=== PATIENT | male | born 1970 | race Caucasian/White ===

== ENCOUNTER 2016-06-20 01:31 | Emergency (ER) | payer BC, OTHER ==
[2016-06-20 01:40] VITALS: BP 183/103; PULSE 62; TEMP 98.9; BMI 40.6
--- NOTE | 2016-06-20 01:48 | PDOC ---
History of Present Illness - General Chief Complaint: Pain, Acute Stated Complaint: BACK PAIN Time Seen by Provider: 06/20/16 01:41 History Source: Patient Exam Limitations: No Limitations - History of Present Illness Initial Comments: 06/20/16 01:46 This is a 45-year-old male who comes in complaining of his mid back. Patient has a long history of lower back pain for which he takes oxycodone and OxyContin. Patient said that he has had this pain for approximately a month and is gotten a little bit worse over the last week or so. Patient denies any pain on urination any frequency of urination or any blood in his urine. Patient denies any radiation of the pain. Patient says he does sometimes have difficulty urinating but that has been going on for several years. Patient denies any fevers, nausea, vomiting or diarrhea. PAST MEDICAL HISTORY: no significant history PAST SURGICAL HISTORY: no significant history FAMILY HISTORY: no pertinant history SOCIAL HISTORY: Pt lives with family and is employed. MEDICATIONS: reviewed ALLERGIES: As per nursing notes Review of Systems General: No fevers or chills, no weakness, no weight loss HEENT: No change in vision. No sore throat,. No ear pain CardioVascular: No chest pain or shortness of breath Respiratory:No cough, or wheezing. Gastrointestinal: no nausea, vomitting, diarrhea or constipation, No rectal bleeding Genitourinary: No dysuria, hematuria, or frequency Musculoskeletal: No joint or muscle pain or swelling Neurologic: No headache, vertigo, dizziness or loss of consciousness Psychiatric: nor depression Skin: No rashes or easy bruising Endocrine: no increased thirst or abnormal weight change Allergic: no skin or latex allergy All other systems reviewed and normal GENERAL: The patient is awake, alert, and fully oriented, in no acute distress. HEAD: Normal with no signs of trauma. EYES: Pupils equal, round and reactive to light, extraocular movements intact, sclera anicteric, conjunctiva clear. EXTREMITIES: Normal range of motion, no edema. BACK: There is tenderness on palpation of the lower back however there is no tenderness on palpation of the mid back for patient is complaining of the pain. There is no palpable spasms. NEUROLOGICAL: Normal speech, normal gait. PSYCH: Normal mood, normal affect. SKIN: Warm, Dry, normal turgor, no rashes or lesions noted. Past History - Past Medical History Allergies/Adverse Reactions: Allergies Allergy/AdvReac Type Severity Reaction Status Date / Time aspirin Allergy Verified 06/20/16 01:36 Penicillins Allergy Verified 06/20/16 01:36 Home Medications: Ambulatory Orders Oxycodone HCl 10 mg PO Q4HWA PRN #30 tablet 07/09/14 Enalapril Maleate [Vasotec] 20 mg PO DAILY 08/02/15 Metoprolol Succinate [Toprol Xl -] 25 mg PO BID 08/02/15 Oxycodone HCl [Oxycontin] 30 mg PO TID 08/02/15 HTN: Yes Liver Disease: Yes Other medical history: CHRONIC BACK PAIN - Psycho/Social/Smoking Cessation Hx Anxiety: No Suicidal Ideation: No Smoking History: Current every day smoker Have you smoked in the past 12 months: Yes Number of Cigarettes Smoked Daily: 20 Information on smoking cessation initiated: Yes 'Breaking Loose' booklet given: 06/09/15 Hx Alcohol Use: No Drug/Substance Use Hx: No Substance Use Type: Alcohol, Prescribed *Physical Exam - Vital Signs Last Vital Signs Temp Pulse Resp BP Pulse Ox 98.9 F 62 16 183/103 100 06/20/16 01:37 06/20/16 01:37 06/20/16 01:37 06/20/16 01:37 06/20/16 01:37 *DC/Admit/Observation/Transfer Diagnosis at time of Disposition: Back pain Qualifiers: Back pain location: thoracic back pain Chronicity: chronic Back pain laterality : left Qualified Code(s): M54.6 - Pain in thoracic spine; G89.29 - Other chronic pain - Discharge Dispostion Disposition: HOME Condition at time of disposition: Stable - Patient Instructions Additional Instructions: Continued to take your oxycodone and OxyContin as prescribed for pain. Return to the emergency department immediately with ANY new, persistent or worsening symptoms. Continue any medications as previously prescribed by your physician. You should follow up with your primary doctor as soon as possible regarding today's emergency department visit. . Please make sure your doctor reviews the results of your emergency evaluation. Thank you for coming to the Emergency Department today for your care. It was a pleasure to see you today. Please note that your evaluation is INCOMPLETE until you follow-up with your doctor.
[2016-06-20 02:44] LABS: URINE APPEARANCE CLEAR; URINE BILIRUBIN NEGATIVE (NEGATIVE); URINE BLOOD NEGATIVE (NEGATIVE); URINE COLOR LTYELLOW; URINE GLUCOSE (UA) NEGATIVE (NEGATIVE); URINE KETONE NEGATIVE (NEGATIVE); URINE LEUK ESTERASE NEGATIVE (NEGATIVE); URINE NITRITE NEGATIVE (NEGATIVE); URINE PROTEIN NEGATIVE (NEGATIVE); URINE UROBILINOGEN NEGATIVE E.U./dl (0.2-1.0)
== END 2016-06-20 02:49 | disposition home or self-care (01) ==
LOC: FER 01:31
DX: M54.6 Pain in thoracic spine (principal); G89.29 Other chronic pain; F17.210 Nicotine dependence, cigarettes, uncomplicated; I10 Essential (primary) hypertension; K76.9 Liver disease, unspecified
CPT/HCPCS: 81003; 99281-25

== ENCOUNTER 2017-09-17 17:31 | Emergency (ER) | payer BC, OTHER ==
[2017-09-17 17:37] VITALS: BMI 40.0
[2017-09-17 17:42] VITALS: TEMP 99.1
--- NOTE | 2017-09-17 17:58 | PDOC ---
History of Present Illness - General History Source: Patient Exam Limitations: No Limitations - History of Present Illness Initial Comments: 09/17/17 18:35 The patient is a 46 year old male with past medical history of hypertension, alcohol abuse, liver cirrhosis, and esophageal varices (2010) who presents to the ED with complaints of abdominal pain that began this morning. The patient reports a moderate, constant, non-radiating pain to his epigastrium associated with nausea. He denies any vomiting or diarrhea but reports having an episode of dark colored stool earlier this morning. He reports his symptoms are very similar to his esophageal varices except in the past he was vomiting up blood. He denies any recent illness, fevers, chills, cough, SOB, chest pain or urinary symptoms. Allergies: Aspirin, penicillins Social Hx: Former alcohol abuse, pack a day smoker GI: Dr. Marie <Dion Carl - Last Filed: 09/17/17 19:28> <Sanjiv Phillips - Last Filed: 09/20/17 14:22> - General Chief Complaint: Pain, Acute Stated Complaint: abd pain, nausea Time Seen by Provider: 09/17/17 17:58 Past History <Dion Carl - Last Filed: 09/17/17 19:28> - Past Medical History COPD: No HTN: Yes Liver Disease: Yes Other medical history: esop varicies, cirrohis - Suicide/Smoking/Psychosocial Hx Smoking History: Current every day smoker Have you smoked in the past 12 months: Yes Number of Cigarettes Smoked Daily: 20 Information on smoking cessation initiated: Yes 'Breaking Loose' booklet given: 09/17/17 Hx Alcohol Use: Yes Drug/Substance Use Hx: No Substance Use Type: Alcohol, Prescribed <Sanjiv Phillips - Last Filed: 09/20/17 14:22> - Past Medical History Allergies/Adverse Reactions: Allergies Allergy/AdvReac Type Severity Reaction Status Date / Time aspirin Allergy Verified 09/17/17 17:32 Penicillins Allergy Verified 09/17/17 17:32 Home Medications: Ambulatory Orders Enalapril Maleate [Vasotec] 20 mg PO BID 08/02/15 Metoprolol Succinate [Toprol Xl -] 25 mg PO BID 08/02/15 Oxycodone HCl [Oxycontin] 20 mg PO TID 08/02/15 Amlodipine Besylate [Norvasc -] 0 mg PO DAILY 09/17/17 Escitalopram Oxalate [Lexapro -] 20 mg PO DAILY 09/17/17 Pantoprazole Sodium [Protonix -] 40 mg PO DAILY #14 tablet.ec 09/17/17 Review of Systems - Review of Systems Able to Perform ROS?: Yes Comments:: 09/17/17 18:35 A complete review of 10 out of 10 review of systems is taken and is negative apart from what is previously mentioned below and in the HPI. All Other Systems: Reviewed and Negative <Dion Carl - Last Filed: 09/17/17 19:28> *Physical Exam - Vital Signs Last Vital Signs Temp Pulse Resp BP Pulse Ox 99.1 F 65 17 156/99 97 09/17/17 17:31 09/17/17 17:31 09/17/17 17:31 09/17/17 17:31 09/17/17 17:31 - Physical Exam Comments: 09/17/17 18:35 Vitals: Triage Vital signs reviewed General Appearance: no acute distress, well nourished well developed, Head: Atraumatic, normocephalic Cardiac: Regular rate and rhythm, no murmurs, no rubs, no gallops, Lungs: Clear to auscultation bilateral, good air movement bilaterally, Abdomen: +mild epigastric tenderness. Soft, nondistended, normal bowel sounds Rectal: +Brown stool Extremities: Full range of motion to all extremities, no cyanosis, clubbing, or edema Skin: Warm and dry, no rashes or lesions, no petechiae Neuro: AOX3; Cranial Nerves 2-12 grossly intact, Strength intact to all extremities, Sensation intact to all extremities Psych: normal mood, normal affect <Dion Carl - Last Filed: 09/17/17 19:28> - Vital Signs Last Vital Signs Temp Pulse Resp BP Pulse Ox 99.1 F 65 17 156/99 97 09/17/17 17:31 09/17/17 17:31 09/17/17 17:31 09/17/17 17:31 09/17/17 17:31 <Sanjiv Phillips - Last Filed: 09/20/17 14:22> Heart Score/ECG Review - ECG Impressions Comment:: 09/17/17 18:53 EKG performed at 1837. Demonstrates sinus bradycardia 56 bpm. Normal intervals. No ST elevations. T wave inversion in lead 3. Interpreted by me. <Sanjiv Phillips - Last Filed: 09/20/17 14:22> ED Treatment Course - LABORATORY CBC & Chemistry Diagram: 09/17/17 18:20 09/17/17 18:20 - ADDITIONAL ORDERS Additional order review: Laboratory Results 09/17/17 18:25 Stool Occult Blood Trace 09/17/17 18:20 RBC 4.44 MCV 95.7 MCHC 33.4 RDW 13.9 MPV 9.2 Neutrophils % 70.2 Lymphocytes % 19.6 D Monocytes % 7.8 Eosinophils % 1.0 Basophils % 1.4 - Medications Given in the ED: ED Medications Discontinued Medications Generic Name Dose Route Start Last Admin Trade Name Freq PRN Reason Stop Dose Admin Ondansetron HCl 4 mg 09/17/17 18:10 09/17/17 18:31 Zofran Injection IVPUSH 09/17/17 18:11 4 mg ONCE ONE Administration <Dion Carl - Last Filed: 09/17/17 19:28> - LABORATORY CBC & Chemistry Diagram: 09/17/17 18:20 09/17/17 18:20 <Sanjiv Phillips - Last Filed: 09/20/17 14:22> Medical Decision Making - Medical Decision Making 09/17/17 19:15 Microblog sent to [facility]. Awaiting call back 09/17/17 19:28 Phone call returned by hospitalist and case discussed. <Dion Carl - Last Filed: 09/17/17 19:28> - Medical Decision Making 09/17/17 18:52 The patient is a 46 year old male with past medical history of hypertension, alcohol abuse, liver cirrhosis, and esophageal varices (2010) who presents to the ED with complaints of abdominal pain that began this morning. The patient reports a moderate, constant, non-radiating pain to his epigastrium associated with nausea. He denies any vomiting or diarrhea but reports having an episode of dark colored stool earlier this morning. He reports his symptoms are very similar to his esophageal varices except in the past he was vomiting up blood. He denies any recent illness, fevers, chills, cough, SOB, chest pain or urinary symptoms. 46 years old with history of alcoholic cirrhosis and variceal bleed in the past presents to the ED with one-day history of nausea and epigastric discomfort and one episode of black stool today No dizziness no lightheadedness Given history we'll check labs EKG type and screen coags. Rectal exam demonstrated brown stool guaiac sent to lab Dr. Harden to follow up labs reassess patient and Dispo likely admission. 09/17/17 18:52 <Sanjiv Phillips - Last Filed: 09/20/17 14:22> *DC/Admit/Observation/Transfer - Attestations Scribe Attestion: 09/17/17 18:36 Documentation prepared by Dion Carl, acting as medical secretary receptionist for Sanjiv Phillips MD. <Dion Carl - Last Filed: 09/17/17 19:28> <Sanjiv Phillips - Last Filed: 09/20/17 14:22> Diagnosis at time of Disposition: Epigastric abdominal pain, History of esophageal varices - Discharge Dispostion Disposition: AGAINST MEDICAL ADVICE Condition at time of disposition: Fair - Prescriptions Prescriptions: Pantoprazole Sodium [Protonix -] 40 mg PO DAILY #14 tablet.ec - Referrals Referrals: Joshua Reed [Non Staff, Medical] - Call tomorrow - Patient Instructions Additional Instructions: Call your care aid, Dr. Marie, tomorrow morning and follow-up within the next 48 hours Protonix 40 mg daily Frequent small meals; avoid alcohol Go to emergency room if you have any worsening abdominal pain/blood in stool or black stools/vomiting
[2017-09-17] MEDS ORDERED: FAMOTIDINE 20 MG/50 ML IVPB 20 MG/50 ML MG IVPB ONE ×2 (18:10→18:26)
[2017-09-17] MEDS ORDERED: ONDANSETRON 4 MG/2 ML VIAL IVPUSH ONE (18:10)
[2017-09-17] MEDS ORDERED: ONDANSETRON 4 MG/2 ML VIAL ONE (18:26)
[2017-09-17 18:32] LABS: BASO % 1.4 % (0-2.0); HEMATOCRIT 42.5 % (35.4-49); HEMOGLOBIN 14.2 GM/dl (11.7-16.9); LYMPH % 19.6 % (8-40); MCHC 33.4 g/dl (32.0-35.9); MEAN CELL VOLUME 95.7 fl (80-96); MEAN PLT VOLUME 9.2 fl (7.5-11.1); MONO % 7.8 % (3.8-10.2); NEUT % 70.2 % (42.8-82.8); PLATELET COUNT 140 K/MM3 (134-434); RBC 4.44 M/mm3 (4.00-5.60); RDW 13.9 % (11.9-15.9); WHITE BLOOD COUNT 4.7 K/mm3 (4.0-10.8)
[2017-09-17 18:49] LABS: ACTIVATED PTT 30.1 SECONDS (25.2-36.5)
[2017-09-17 18:51] LABS: ALBUMIN 3.4 g/dl (3.5-5.0); ALK PHOS 63 U/L (32-92); ANION GAP 6 (8-16); BILIRUBIN,TOTAL 0.9 mg/dl (0.2-1.0); BLOOD UREA NITROGEN 11 mg/dl (7-18); CALCIUM 8.7 mg/dl (8.4-10.2); CHLORIDE 103 mmol/L (98-107); CO2 27 mmol/L (22-28); CREATININE 0.8 mg/dl (0.6-1.3); GLUCOSE,RANDOM 108 mg/dl (74-106); POTASSIUM 3.8 mmol/L (3.5-5.1); SGOT/AST 58 U/L (10-42); SGPT/ALT 40 U/L (10-40); SODIUM 136 mmol/L (136-145); TOT PROT 7.1 g/dl (6.4-8.3)
[2017-09-17 18:54] LABS: INR 1.33 (0.82-1.09); PROTHROMBIN TIME (PATIENT) 14.8 SEC (10.2-13.0)
[2017-09-17 19:35] LABS: LIPASE 197 U/L (73-393)
--- NOTE | 2017-09-17 19:35 | PDOC ---
*Physical Exam - Vital Signs Last Vital Signs Temp Pulse Resp BP Pulse Ox 99.1 F 65 17 156/99 97 09/17/17 17:31 09/17/17 17:31 09/17/17 17:31 09/17/17 17:31 09/17/17 17:31 ED Treatment Course - LABORATORY CBC & Chemistry Diagram: 09/17/17 18:20 09/17/17 18:20 - ADDITIONAL ORDERS Additional order review: Laboratory Results 09/17/17 09/17/17 09/17/17 18:25 18:20 18:20 PT with INR 14.8 H INR 1.33 H PTT (Actin FS) 30.1 Sodium 136 Potassium 3.8 Chloride 103 Carbon Dioxide 27 Anion Gap 6 L BUN 11 Creatinine 0.8 Creat Clearance w eGFR > 60 Random Glucose 108 H Calcium 8.7 Total Bilirubin 0.9 AST 58 H D ALT 40 Alkaline Phosphatase 63 Total Protein 7.1 Albumin 3.4 L Stool Occult Blood Trace 09/17/17 18:20 RBC 4.44 MCV 95.7 MCHC 33.4 RDW 13.9 MPV 9.2 Neutrophils % 70.2 Lymphocytes % 19.6 D Monocytes % 7.8 Eosinophils % 1.0 Basophils % 1.4 - Medications Given in the ED: ED Medications Discontinued Medications Generic Name Dose Route Start Last Admin Trade Name Autumn PRN Reason Stop Dose Admin Famotidine/Sodium Chloride 20 mg in 50 mls @ 100 mls/hr 09/17/17 18:10 18:31 Pepcid 20 Mg Premixed Ivpb - IVPB 09/17/17 18:39 100 mls/hr ONCE ONE Administration Ondansetron HCl 4 mg 09/17/17 18:10 09/17/17 18:31 Zofran Injection IVPUSH 09/17/17 18:11 4 mg ONCE ONE Administration Progress Note - Progress Note Progress Note: Care of this patient received from . Although the patient had consented to admission initially, when Dr. Phillips discussed this with him, as plans continued for his admission, patient decided to sign out AMA. The patient states that he absolutely needed to go to work at 5 AM tomorrow; no amount of work documentation or communication with his superiors would benefit the situation. He states that he understands the risks involved that I described, including severe gastrointestinal hemorrhage, possible shock and . Especially because he has a known history of esophageal varices, gastrointestinal hemorrhage could be very sudden and catastrophic. The patient states that he already has a press assistant, Dr. Noé Reed at [facility]. He states he will follow-up with him in the very near future. Patient asked for prescription strength "acid luis e" for his GERD/epigastric discomfort. Protonix 40 mg daily prescribed. *DC/Admit/Observation/Transfer Diagnosis at time of Disposition: Epigastric abdominal pain, History of esophageal varices - Discharge Dispostion Disposition: AGAINST MEDICAL ADVICE Condition at time of disposition: Fair - Prescriptions Prescriptions: Pantoprazole Sodium [Protonix -] 40 mg PO DAILY #14 tablet.ec - Referrals Referrals: Joshua Reed [Non Staff, Medical] - Call tomorrow - Patient Instructions Additional Instructions: Call your press assistant, Dr. Marie, tomorrow morning and follow-up within the next 48 hours Protonix 40 mg daily Frequent small meals; avoid alcohol Go to emergency room if you have any worsening abdominal pain/blood in stool or black stools/vomiting - Post Discharge Activity
[2017-09-17 21:00] VITALS: BP 166/102; PULSE 58
--- NOTE | 2017-09-19 13:08 | EKG ---
Test Reason : Blood Pressure : / mmHG Vent. Rate : 056 BPM Atrial Rate : 056 BPM P-R Int : 156 ms QRS Dur : 104 ms QT Int : 468 ms P-R-T Axes : 022 012 003 degrees QTc Int : 451 ms SINUS BRADYCARDIA OTHERWISE NORMAL ECG NO PREVIOUS ECGS AVAILABLE Confirmed by YANA EGAN MD ([id number]) on 09/19/2017 1:07:58 PM Referred By: KARL Confirmed By:YANA EGAN MD
== END 2017-09-17 21:05 | disposition left against medical advice (07) ==
LOC: FER 17:31
PROC: 3E033GC Introduction of Other Therapeutic Substance into Peripheral Vein, Percutaneous Approach (ICD-10-PCS; principal; 2017-09-17)
DX: R10.13 Epigastric pain (principal); I85.00 Esophageal varices without bleeding; I10 Essential (primary) hypertension; K70.30 Alcoholic cirrhosis of liver without ascites; F10.10 Alcohol abuse, uncomplicated; F17.210 Nicotine dependence, cigarettes, uncomplicated
CPT/HCPCS: 36415; 80053; 82272; 83690; 85025; 85610; 85730; 86850; 86900; 86901; 93005; 99282-25

== ENCOUNTER 2017-11-26 23:32 | Emergency (ER) | payer BC, OTHER ==
[2017-11-26 23:49] VITALS: BP 143/90; PULSE 74; BMI 40.6
--- NOTE | 2017-11-27 01:24 | PDOC ---
History of Present Illness - General Chief Complaint: RX Refill Stated Complaint: REQUESTS PAIN MEDICATION Time Seen by Provider: 11/26/17 23:43 - History of Present Illness Initial Comments: This 47-year-old man with a history of chronic lower back pain, history of alcohol abuse with subsequent cirrhosis/esophageal varices, hypertension, presents with persistent lower back pain and symptoms consistent with narcotic trauma since his PMD is decreasing amount of oxycodone he has been taking. The patient states that he has been taking an 120 mg of oxycodone daily for several years. His general medical doctor who prescribes his medications has recently decreased this dosage to 60 mg daily. Because of persistent pain on this dosage , the patient took more than what was prescribed on a daily basis and now has run out of his medication. He is scheduled to see his doctor in the next 24 hours but has been having intermittent muscle twitching, nausea, sweating. Past History - Past Medical History Allergies/Adverse Reactions: Allergies Allergy/AdvReac Type Severity Reaction Status Date / Time aspirin Allergy Verified 11/26/17 23:40 Penicillins Allergy Verified 11/26/17 23:40 Home Medications: Ambulatory Orders Enalapril Maleate [Vasotec] 20 mg PO BID 08/02/15 Metoprolol Succinate [Toprol Xl -] 25 mg PO BID 08/02/15 Oxycodone HCl [Oxycontin] 20 mg PO TID 08/02/15 Amlodipine Besylate [Norvasc -] 0 mg PO DAILY 09/17/17 Escitalopram Oxalate [Lexapro -] 20 mg PO DAILY 09/17/17 Pantoprazole Sodium [Protonix -] 40 mg PO DAILY #14 tablet.ec 09/17/17 COPD: No HTN: Yes Liver Disease: Yes - Suicide/Smoking/Psychosocial Hx Smoking History: Current every day smoker Have you smoked in the past 12 months: Yes Number of Cigarettes Smoked Daily: 20 Information on smoking cessation initiated: Yes 'Breaking Loose' booklet given: 09/17/17 Hx Alcohol Use: No Drug/Substance Use Hx: No Substance Use Type: Alcohol, Prescribed Review of Systems - Review of Systems Able to Perform ROS?: Yes Comments:: 12 point review of systems is negative except for what is noted in the history of present illness *Physical Exam - Vital Signs Last Vital Signs Temp Pulse Resp BP Pulse Ox 74 16 143/90 100 11/26/17 23:46 11/26/17 23:46 11/26/17 23:46 11/26/17 23:46 - Physical Exam Comments: GENERAL: Adult male, alert and oriented 3, appearing to be in mild distress, with intermittent lower extremity twitching HEAD: Normal with no signs of trauma. EYES: PERRLA, EOMI, sclera anicteric, conjunctiva clear. ENT: Ears normal, nares patent, oropharynx clear without exudates. Dry mucous membranes. NECK: Normal range of motion, supple without lymphadenopathy, JVD, or masses. LUNGS: Breath sounds equal, clear to auscultation bilaterally. No wheezes, and no crackles. HEART:Regular rate and rhythm, normal S1 and S2 without murmur, rub or gallop. ABDOMEN:.normal bowel sounds No guarding,tenderness or rebound.No masses No distention. EXTREMITIES: Normal range of motion, no edema. No clubbing or cyanosis. No erythema, or tenderness. NEUROLOGICAL: Cranial nerves II through XII grossly intact. Normal speech. No focal neurological deficits. MUSCULOSKELETAL: Back non-tender to palpation, no CVA tenderness SKIN: Warm, Dry, normal turgor, no rashes or lesions noted. Medical Decision Making - Medical Decision Making This 47-year-old man with a history of chronic lower back pain and daily large doses of oxycodone, recently had his daily dosage halved by his general medical doctor who prescribes his pain medication. Patient is now uncomfortable with signs of narcotic withdrawal as well as residual lower back pain. Of note, patient does not appear to have been under the care of a pain management physician for any length of time. He states that he would much rather his pain being managed with long-acting agents, etc. 4 tablets of Percocet 5/325 dispensed to patient until he can see his doctor tomorrow. Meanwhile, he was given referral information for , pain management *DC/Admit/Observation/Transfer Diagnosis at time of Disposition: Narcotic withdrawal Back pain Qualifiers: Back pain location: low back pain Chronicity: chronic Back pain laterality: midline Sciatica presence: without sciatica Qualified Code(s): M54.5 - Low back pain - Discharge Dispostion Disposition: HOME Condition at time of disposition: Stable - Referrals Referrals: Dayanna Mejia MD [Non Staff, Medical] - - Patient Instructions Printed Discharge Instructions: Managing Chronic Low Back Pain Additional Instructions: Follow-up later today with your general medical doctor as planned Consider following up with automobile painter (Dr. Mejia or other as discussed) - Post Discharge Activity
== END 2017-11-27 01:55 | disposition home or self-care (01) ==
LOC: FER 23:32
DX: F11.23 Opioid dependence with withdrawal (principal); M54.5 Low back pain; G89.29 Other chronic pain; F17.210 Nicotine dependence, cigarettes, uncomplicated; I10 Essential (primary) hypertension; K76.9 Liver disease, unspecified
CPT/HCPCS: 99281-25

== ENCOUNTER 2019-02-08 17:41 | Emergency (ER) | payer BC, OTHER ==
[2019-02-08 17:55] VITALS: BP 149/92; PULSE 71; TEMP 99; BMI 46.0
--- NOTE | 2019-02-08 18:11 | PDOC ---
History of Present Illness - General Chief Complaint: Edema Stated Complaint: BLE EDEMA Time Seen by Provider: 02/08/19 17:59 Past History - Past Medical History Allergies/Adverse Reactions: Allergies Allergy/AdvReac Type Severity Reaction Status Date / Time aspirin Allergy Verified 02/08/19 17:46 Penicillins Allergy Verified 02/08/19 17:46 Home Medications: Ambulatory Orders Enalapril Maleate [Vasotec] 20 mg PO BID 08/02/15 Metoprolol Succinate [Toprol Xl -] 25 mg PO BID 08/02/15 Amlodipine Besylate [Norvasc -] 5 mg PO DAILY 09/17/17 Buprenorphine HCl/Naloxone HCl [Buprenorp-Nalox 4-1 mg Sl Film] 1 film SL BID Hydrochlorothiazide [Hctz -] 1 tab PO DAILY 02/08/19 COPD: No HTN: Yes Liver Disease: Yes - Psycho Social/Smoking Cessation Hx Smoking History: Current every day smoker Have you smoked in the past 12 months: Yes Number of Cigarettes Smoked Daily: 20 Information on smoking cessation initiated: Yes 'Breaking Loose' booklet given: 09/17/17 Hx Alcohol Use: Yes (6 PACK BEER DAILY) Drug/Substance Use Hx: No Substance Use Type: Alcohol, Prescribed *Physical Exam - Vital Signs Last Vital Signs Temp Pulse Resp BP Pulse Ox 99 F 71 20 149/92 98 02/08/19 17:41 02/08/19 17:41 02/08/19 17:41 02/08/19 17:41 02/08/19 17:41
[2019-02-08 19:08] LABS: BASO % 0.8 % (0-2.0); EOS % 2.8 % (0-4.5); HEMATOCRIT 40.7 % (35.4-49); HEMOGLOBIN 13.8 GM/dl (11.7-16.9); MCHC 33.8 g/dl (32.0-35.9); MEAN CELL VOLUME 97.4 fl (80-96); MEAN PLT VOLUME 9.7 fl (7.5-11.1); MONO % 9.4 % (3.8-10.2); PLATELET COUNT 140 K/MM3 (134-434); RBC 4.18 M/mm3 (4.00-5.60); RDW 13.3 % (11.9-15.9); WHITE BLOOD COUNT 6.7 K/mm3 (4.0-10.8)
--- NOTE | 2019-02-08 19:10 | PDOC ---
*Physical Exam - Vital Signs Last Vital Signs Temp Pulse Resp BP Pulse Ox 99 F 71 20 149/92 98 02/08/19 17:41 02/08/19 17:41 02/08/19 17:41 02/08/19 17:41 02/08/19 17:41 ED Treatment Course - LABORATORY CBC & Chemistry Diagram: 02/08/19 18:45 02/08/19 18:45 - ADDITIONAL ORDERS Additional order review: Laboratory Results 02/08/19 18:45 Urine Color Yellow Urine Appearance Clear Urine pH 6.5 Urine Protein Negative Urine Glucose (UA) Negative Urine Ketones Negative Urine Blood Negative Urine Nitrite Negative Urine Bilirubin Negative Urine Urobilinogen 0.2 Ur Leukocyte Esterase Negative ED Progress Note - Progress Note Progress Note: 02/08/19 19:07 Care of this patient was transferred to sd from Dr. Madsion heller at 1900 hrs. Patient is a 48-year-old male who comes in complaining of bilateral lower extremity edema. Patient has a history of chronic alcohol use and cirrhosis of the liver. Patient is a history of esophageal varices that have bled in the past. Patient also has a history of hypertension, a work-up before coronary artery disease is in progress. However patient's edema most likely secondary to his chronic liver issues. 02/08/19 20:19 Patient's work-up was unremarkable including non-measurable troponin, EKG that showed possible old anterior infarct otherwise normal sinus rhythm no acute ST- T wave changes. His chest x-ray did show a mildly enlarged heart but otherwise no acute pathology. Patient denies any history of chest pain shortness of breath or cardiac symptoms. Patient's edema is most likely secondary to his chronic liver issues. Patient does have an appointment with a liver specialist in approximately 2 weeks We will start patient on Lasix once a day. Patient discharged home Discharge - Discharge Information Problems reviewed: Yes Clinical Impression/Diagnosis: Bilateral leg edema Disposition: HOME - Admission No - Follow up/Referral - Patient Discharge Instructions Additional Instructions: Return to the emergency department immediately with ANY new, persistent or worsening symptoms. Continue any medications as previously prescribed by your physician. You should follow up with your primary doctor as soon as possible regarding today's emergency department visit. . Please make sure your doctor reviews the results of your emergency evaluation. Thank you for coming to the Emergency Department today for your care. It was a pleasure to see you today. Please note that your evaluation is INCOMPLETE until you follow-up with your doctor. - Post Discharge Activity
[2019-02-08 19:16] LABS: ALBUMIN 3.2 g/dl (3.4-5.0); BILIRUBIN,TOTAL 0.7 mg/dl (0.2-1); CALCIUM 8.6 mg/dl (8.5-10); CREATININE 0.7 mg/dl (0.55-1.3); TOT PROT 6.9 g/dl (6.4-8.2)
[2019-02-08 19:21] LABS: INR 1.37 (0.82-1.09); PROTHROMBIN TIME (PATIENT) 15.2 SEC (10.2-13.0)
[2019-02-08] MEDS ORDERED: FUROSEMIDE 40 MG TABLET (FP) PO ONE (20:18)
[2019-02-08] MEDS ORDERED: FUROSEMIDE 40 MG TABLET (FP) ONE (20:19)
--- NOTE | 2019-02-09 16:43 | EKG ---
Test Reason : Blood Pressure : / mmHG Vent. Rate : 068 BPM Atrial Rate : 068 BPM P-R Int : 162 ms QRS Dur : 100 ms QT Int : 410 ms P-R-T Axes : 000 016 002 degrees QTc Int : 435 ms NORMAL SINUS RHYTHM CANNOT RULE OUT ANTERIOR INFARCT , AGE UNDETERMINED WHEN COMPARED WITH ECG OF 17-SEP-2017 18:37, NO SIGNIFICANT CHANGE WAS FOUND Confirmed by ZHANNA PENNINGTON MD ([id number]) on 02/09/2019 4:42:59 PM Referred By: Confirmed By:ZHANNA PENNINGTON MD
== END 2019-02-08 20:35 | disposition home or self-care (01) ==
LOC: FER 17:41
DX: R60.0 Localized edema (principal); I10 Essential (primary) hypertension; F10.10 Alcohol abuse, uncomplicated; K74.60 Unspecified cirrhosis of liver; F17.210 Nicotine dependence, cigarettes, uncomplicated; Z87.19 Personal history of other diseases of the digestive system; Z88.0 Allergy status to penicillin; Z88.6 Allergy status to analgesic agent
CPT/HCPCS: 36415; 71045-TC-FY; 80053; 81003; 82550; 84484; 85025; 85610; 93005; 99283-25

== ENCOUNTER 2019-05-30 12:57 | Inpatient (IN) | payer BC, OTHER ==
[2019-05-30] MEDS ORDERED: APIXABAN 5 MG TABLET PO ONE (13:54)
[2019-05-30] MEDS ORDERED: ACETAMINOPHEN 325 MG TABLET (FP) ONE (14:16)
[2019-05-30] MEDS ORDERED: APIXABAN 5 MG TABLET ONE (14:17)
[2019-05-30] MEDS ORDERED: ACETAMINOPHEN 325 MG TABLET (FP) PO ONE (14:27)
--- NOTE | 2019-05-30 14:31 | PDOC ---
History of Present Illness - General History Source: Patient - History of Present Illness Occurred: reports: other Lower Extremity Pain Location: left: leg <Mara Sena - Last Filed: 05/30/19 15:54> <Sanjiv Phillips - Last Filed: 06/02/19 13:40> - General Chief Complaint: Edema Stated Complaint: LT. LEG BLOOD CLOT Time Seen by Provider: 05/30/19 13:45 Past History - Past Medical History COPD: No DVT: Yes (LLE) HTN: Yes Liver Disease: Yes - Psycho Social/Smoking Cessation Hx Smoking History: Never smoked Have you smoked in the past 12 months: Yes Number of Cigarettes Smoked Daily: 20 Information on smoking cessation initiated: No 'Breaking Loose' booklet given: 09/17/17 Hx Alcohol Use: No Drug/Substance Use Hx: No Substance Use Type: Alcohol, Prescribed <Mara Sena - Last Filed: 05/30/19 15:54> <Sanjiv Phillips - Last Filed: 06/02/19 13:40> - Past Medical History Allergies/Adverse Reactions: Allergies Allergy/AdvReac Type Severity Reaction Status Date / Time aspirin Allergy Verified 05/30/19 13:09 Penicillins Allergy Verified 05/30/19 13:09 Home Medications: Ambulatory Orders Enalapril Maleate [Vasotec] 20 mg PO BID 08/02/15 Metoprolol Succinate [Toprol Xl -] 25 mg PO BID 08/02/15 Amlodipine Besylate [Norvasc -] 5 mg PO DAILY 09/17/17 Buprenorphine HCl/Naloxone HCl [Buprenorp-Nalox 4-1 mg Sl Film] 1 film SL BID 02/08/19 Furosemide [Lasix] 40 mg PO DAILY #14 tablet 02/08/19 Hydrochlorothiazide [Hctz -] 1 tab PO DAILY 02/08/19 Apixaban [Eliquis - Starter Pack (For VTE)] 5 mg PO UTDICT 30 Days #30 tab 05/31/19 Review of Systems - Review of Systems Constitutional: No: Chills, Fever Respiratory: No: Shortness of Breath, Hemoptysis Cardiac (ROS): No: Chest Pain, Palpitations <Mara Sena - Last Filed: 05/30/19 15:54> *Physical Exam - Vital Signs Last Vital Signs Temp Pulse Resp BP Pulse Ox 98.2 F 82 16 128/69 98 05/30/19 13:09 05/30/19 13:09 05/30/19 13:09 05/30/19 13:09 05/30/19 13:09 - Physical Exam General Appearance: Yes: Appropriately Dressed. No: Apparent Distress HEENT: positive: Normal Voice Neck: positive: Supple Respiratory/Chest: positive: Lungs Clear, Normal Breath Sounds. negative: Respiratory Distress Cardiovascular: positive: Regular Rate, S1, S2 Extremity: positive: Other (ttp to lateral L calf, no obvious swelling, no erythema) Integumentary: positive: Dry, Warm Neurologic: positive: Fully Oriented, Alert, Normal Mood/Affect <Mara Sena - Last Filed: 05/30/19 15:54> - Vital Signs Last Vital Signs Temp Pulse Resp BP Pulse Ox 97.6 F 63 20 132/75 98 05/31/19 16:20 05/31/19 16:20 05/31/19 16:20 05/31/19 16:20 05/31/19 13:00 <Sanjiv Phillips - Last Filed: 06/02/19 13:40> ED Treatment Course - LABORATORY CBC & Chemistry Diagram: 05/30/19 14:00 05/30/19 14:00 - RADIOLOGY Radiology Studies Ordered: Category Date Time Status DUPLEX VASCUL US-1 LEG [US] Stat Ultrasound 05/30/19 13:54 Ordered - Medications Given in the ED: ED Medications Discontinued Medications Generic Name Dose Route Start Last Admin Trade Name Freq PRN Reason Stop Dose Admin Apixaban 10 mg 05/30/19 13:54 05/30/19 14:12 Eliquis - PO 05/30/19 13:55 10 mg ONCE ONE Administration <Mara Sena - Last Filed: 05/30/19 15:54> - LABORATORY CBC & Chemistry Diagram: 05/31/19 07:00 05/31/19 07:00 - ADDITIONAL ORDERS Additional order review: 05/30/19 14:00 RBC 4.86 MCV 94.5 MCHC 34.7 RDW 16.2 H MPV 9.4 Neutrophils % 71.2 Lymphocytes % 17.5 Monocytes % 9.6 Eosinophils % 1.0 Basophils % 0.7 - Medications Given in the ED: ED Medications Discontinued Medications Generic Name Dose Route Start Last Admin Trade Name Freq PRN Reason Stop Dose Admin Acetaminophen 1,000 mg 05/30/19 14:27 05/30/19 15:12 Tylenol - PO 05/30/19 14:28 1,000 mg ONCE ONE Administration Acetaminophen 650 mg 05/30/19 18:59 05/30/19 21:48 Tylenol - PO 650 mg Q6H PRN Administration PAIN LEVEL 1-5 Apixaban 10 mg 05/30/19 13:54 05/30/19 14:12 Eliquis - PO 05/30/19 13:55 10 mg ONCE ONE Administration Apixaban 10 mg 05/31/19 12:45 05/31/19 13:11 Eliquis - PO Not Given BID ERI Apixaban 10 mg 05/31/19 14:42 05/31/19 15:32 Eliquis - PO 10 mg BID ERI Administration Buprenorphine/Naloxone 2 each 05/30/19 22:00 05/31/19 09:33 Suboxone 2 Mg/0.5 Mg Film Packet SL 2 each BID ERI Administration Enalapril Maleate 20 mg 05/30/19 22:00 05/31/19 09:32 Vasotec - PO 20 mg BID ERI Administration Enoxaparin Sodium 140 mg 05/30/19 16:45 05/30/19 16:51 Lovenox - SQ 140 mg ONCE ERI Administration Heparin Sodium (Porcine) 5,000 unit 05/31/19 09:08 05/31/19 09:32 Heparin - IVPUSH 05/31/19 09:09 5,000 unit ONCE ONE Administration Heparin Sodium (Porcine) 25, 500 mls @ 52.254 mls/hr 05/30/19 18:30 05/31/19 05:06 000 unit/ Sodium Chloride IV 15 unit/kg/hr TITR ERI 43.545 mls/hr Administration Protocol 18 UNIT/KG/HR Heparin Sodium (Porcine) 25, 500 mls @ 20 mls/hr 05/31/19 09:00 05/31/19 13:11 000 unit/ Sodium Chloride IV Not Given TITR ERI Protocol 1,000 UNIT/HR Heparin Sodium/Dextrose 25,000 units in 500 mls @ 20 mls/hr 05/31/19 09:15 05/31/19 09:31 Heparin Infusion - IVPB 1,000 units/hr TITR ERI 20 mls/hr Administration Protocol 1,000 UNITS/HR Metoprolol Tartrate 25 mg 05/30/19 22:00 05/31/19 09:32 Lopressor - PO 25 mg BID ERI Administration Nicotine 21 mg 05/31/19 11:45 05/31/19 11:47 Nicoderm Patch - TD 21 mg DAILY ERI Administration Nicotine Polacrilex 2 mg 05/30/19 18:23 05/31/19 11:47 Nicorette Gum - BUC 2 mg Q2H PRN Administration NICOTINE REPLACEMENT RX Spironolactone 50 mg 05/30/19 22:00 05/31/19 09:32 Aldactone - PO 50 mg BID ERI Administration <Sanjiv Phillips - Last Filed: 06/02/19 13:40> Medical Decision Making - Medical Decision Making 05/30/19 14:28 48-year-old morbidly obese male with history of hypertension, chronic lower extremity edema, on water pill, presented to ED after being diagnosed with left lower extremity DVT at [facility]. Patient states for the past 3 weeks has had severe pain to lateral aspect of left calf that has gotten worse. No shortness of breath chest pain palpitations fever or chills. No history of prior DVT. No recent travel. see exam DVT L popliteal DVT on US per [facility] records pt has w/ his person No resp/cards sxs Stable -will rpt US pr d/w Dr Phillips -labs -start on eliquis -pt has appt w/ PMD on Sunday05/30/19 15:55 PT/INR slightly elevated above normal range. Currently in ultrasound. Anticipate discharge with Eliquis and to follow-up with PMD on Sunday as already scheduled. I attempted to call patient's PMD in [place] but no answer 05/30/19 15:55 Patient signed out to WAYNE Sultana at this time <Mara Sena - Last Filed: 05/30/19 15:54> - Medical Decision Making 06/02/19 13:40 I reviewed the case of the mid-level practitioner and was available for consultation while in the emergency department <Sanjiv Phillips - Last Filed: 06/02/19 13:40> Discharge - Discharge Information Problems reviewed: Yes <Mara Sena - Last Filed: 05/30/19 15:54> <Sanjiv Phillips - Last Filed: 06/02/19 13:40> - Discharge Information Clinical Impression/Diagnosis: DVT (deep venous thrombosis) Qualifiers: DVT location: lower extremity Affected thrombotic vein of extremity: popliteal Chronicity: acute Laterality: left Qualified Code(s): I82.432 - Acute embolism and thrombosis of left popliteal vein Condition: Stable Disposition: HOME
[2019-05-30 14:37] LABS: BASO % 0.7 % (0-2.0); HEMATOCRIT 45.9 % (35.4-49); HEMOGLOBIN 15.9 GM/dL (11.7-16.9); LYMPH % 17.5 % (8-40); MCH 32.8 pg (25.7-33.7); MCHC 34.7 g/dl (32.0-35.9); MEAN CELL VOLUME 94.5 fl (80-96); MEAN PLT VOLUME 9.4 fl (7.5-11.1); MONO % 9.6 % (3.8-10.2); NEUT % 71.2 % (42.8-82.8); PLATELET COUNT 171 K/MM3 (134-434); RBC 4.86 M/mm3 (4.00-5.60); RDW 16.2 % (11.9-15.9)
[2019-05-30 15:09] LABS: ALBUMIN 3.4 g/dl (3.4-5.0); BILIRUBIN,TOTAL 1.1 mg/dL (0.2-1); BLOOD UREA NITROGEN 15.2 mg/dL (7-18); CALCIUM 8.2 mg/dL (8.5-10.1); POTASSIUM 4.8 mmol/L (3.5-5.1); TOT PROT 8.4 g/dl (6.4-8.2)
[2019-05-30 15:19] LABS: INR 1.25 (0.83-1.09); PROTHROMBIN TIME (PATIENT) 14.8 SEC (9.7-13.0)
--- NOTE | 2019-05-30 16:37 | PDOC ---
*Physical Exam - Vital Signs Last Vital Signs Temp Pulse Resp BP Pulse Ox 98.2 F 82 16 128/69 98 05/30/19 13:09 05/30/19 13:09 05/30/19 13:09 05/30/19 13:09 05/30/19 13:09 ED Treatment Course - LABORATORY CBC & Chemistry Diagram: 05/30/19 14:00 05/30/19 14:00 - ADDITIONAL ORDERS Additional order review: Laboratory Results 05/30/19 05/30/19 14:00 14:00 PT with INR 14.80 H INR 1.25 H Sodium 136 Potassium 4.8 Chloride 100 Carbon Dioxide 29 Anion Gap 7 L BUN 15.2 Creatinine 1.0 Est GFR (CKD-EPI)AfAm 103.42 Est GFR (CKD-EPI)NonAf 89.23 Random Glucose 104 Calcium 8.2 L Total Bilirubin 1.1 H AST 45 H ALT 33 Alkaline Phosphatase 86 Total Protein 8.4 H Albumin 3.4 05/30/19 14:00 RBC 4.86 MCV 94.5 MCHC 34.7 RDW 16.2 H MPV 9.4 Neutrophils % 71.2 Lymphocytes % 17.5 Monocytes % 9.6 Eosinophils % 1.0 Basophils % 0.7 - Medications Given in the ED: ED Medications Discontinued Medications Generic Name Dose Route Start Last Admin Trade Name Freq PRN Reason Stop Dose Admin Acetaminophen 1,000 mg 05/30/19 14:27 05/30/19 15:12 Tylenol - PO 05/30/19 14:28 1,000 mg ONCE ONE Administration Apixaban 10 mg 05/30/19 13:54 05/30/19 14:12 Eliquis - PO 05/30/19 13:55 10 mg ONCE ONE Administration ED Progress Note - Progress Note Progress Note: 05/30/19 16:37 Received signout from OLIVIA Saravia. Briefly this is a 48-year-old male history of hypertension, peripheral edema who was sent by urgent care to the emergency department for evaluation of left lower extremity DVT. Ultrasound pending Laboratory testing is unremarkable Disposition pending ultrasound read. Medical Decision Making - Medical Decision Making 05/30/19 16:42 Left lower extremity Doppler as read by Dr. Alvarez: Acute DVT, occlusive in the distal left femoral and distal left popliteal nonocclusive in the mid left femoral and proximal popliteal veins. Case has been discussed with attending physician Alan who recommends admission for continued evaluation of DVT. Patient's primary doctor is in [place]. I will contact hospitalist for admission. Lovenox 140mg SQ now 05/30/19 17:08 05/30/19 17:37 Case d/w Dr. Neftali Beebe who accepts pt for admission to Med-Surg under Dr. Macedo. Discharge - Discharge Information Problems reviewed: Yes Clinical Impression/Diagnosis: DVT (deep venous thrombosis) Qualifiers: DVT location: lower extremity Affected thrombotic vein of extremity: popliteal Chronicity: acute Laterality: left Qualified Code(s): I82.432 - Acute embolism and thrombosis of left popliteal vein Condition: Stable - Admission Yes - Follow up/Referral - Patient Discharge Instructions - Post Discharge Activity
[2019-05-30] MEDS ORDERED: ENOXAPARIN NA (PORCINE) 120 MG/0.8 ML DISP.SYRIN SQ SCH (16:45)
[2019-05-30] MEDS ORDERED: HEPARIN NA (PORCINE) 5,000 UNITS/ML 1ML VIAL IVPUSH PRN ×4 (18:04→18:20)
--- NOTE | 2019-05-30 18:06 | HP ---
CHIEF COMPLAINT: left leg pain and swelling PCP: HISTORY OF PRESENT ILLNESS: Patient is a 48 year old male with past medical history of HTN and peripheral edema, presented today due to left calf pain and swelling that started 3 weeks ago, and was found to have a left leg DVT at the urgent care today. Patient reported he started experiencing the left leg pain and swelling 3 weeks ago, described as "sore" worse at rest, relieved by walking and leg elevation. He went to urgent care today where an ultrasound was done and revealed LLE DVT, and patient was advised to go to the ED. Patient denies any recent travel, denies any recent illness. Patient denies any fever, chills, headache, dizziness, chest pain, SOB, abdominal pain, diarrhea, urinary symptoms. About 4 months ago, patient was found to have peripheral edema and was started on spironolactone and lasix, but reports no previous workup of the heart. ER course was notable for: (1)LLE doppler - Acute DVT, occlusive in the distal left femoral and distal left popliteal and nonocclusive in the mid left femoral and proximal popliteal veins. (2)Lovenox 140mg sq given (3) Recent Travel:denies PAST MEDICAL HISTORY: HTN Peripheral edema PAST SURGICAL HISTORY: Right knee meniscal tear surgery Social History: Smokinppd >30years Alcohol:6 beers every other day Drugs: on buprenorphine/suboxone Allergies aspirin Allergy (Verified 05/30/19 13:09) Penicillins Allergy (Verified 05/30/19 13:09) HOME MEDICATIONS: Home Medications Medication Instructions Recorded Enalapril Maleate [Vasotec] 20 mg PO BID 08/02/15 Metoprolol Succinate [Toprol Xl -] 25 mg PO BID 08/02/15 Amlodipine Besylate [Norvasc -] 5 mg PO DAILY 09/17/17 Buprenorphine HCl/Naloxone HCl 1 film SL BID 02/08/19 [Buprenorp-Nalox 4-1 mg Sl Film] Furosemide [Lasix] 40 mg PO DAILY #14 tablet 02/08/19 Hydrochlorothiazide [Hctz -] 1 tab PO DAILY 02/08/19 REVIEW OF SYSTEMS CONSTITUTIONAL: Absent: fever, chills, diaphoresis, generalized weakness, malaise, loss of appetite, weight change HEENT: Absent: rhinorrhea, nasal congestion, throat pain, throat swelling, difficulty swallowing, mouth swelling, ear pain, eye pain, visual changes CARDIOVASCULAR: Absent: chest pain, syncope, palpitations, irregular heart rate, lightheadedness, peripheral edema RESPIRATORY: Absent: cough, shortness of breath, dyspnea with exertion, orthopnea, wheezing, stridor, hemoptysis GASTROINTESTINAL: Absent: abdominal pain, abdominal distension, nausea, vomiting, diarrhea, constipation, melena, hematochezia GENITOURINARY: Absent: dysuria, frequency, urgency, hesitancy, hematuria, flank pain, genital pain MUSCULOSKELETAL: left leg pain Absent: myalgia, arthralgia, joint swelling, back pain, neck pain SKIN: Absent: rash, itching, pallor HEMATOLOGIC/IMMUNOLOGIC: Absent: easy bleeding, easy bruising, lymphadenopathy, frequent infections ENDOCRINE: Absent: unexplained weight gain, unexplained weight loss, heat intolerance, cold intolerance NEUROLOGIC: Absent: headache, focal weakness or paresthesias, dizziness, unsteady gait, seizure, mental status changes, bladder or bowel incontinence PSYCHIATRIC: Absent: anxiety, depression, suicidal or homicidal ideation, hallucinations. PHYSICAL EXAMINATION Vital Signs - 24 hr 05/30/19 13:09 Temperature 98.2 F Pulse Rate 82 Respiratory 16 Rate Blood Pressure 128/69 O2 Sat by Pulse 98 Oximetry (%) GENERAL: Awake, alert, and fully oriented, in no acute distress. HEAD: Normal with no signs of trauma. EYES: PERRLA, EOMI, sclera anicteric, conjunctiva clear. EARS, NOSE, THROAT: Moist mucous membranes. NECK: Normal range of motion, supple LUNGS: Breath sounds equal, clear to auscultation bilaterally. HEART: Regular rate and rhythm, normal S1 and S2 without murmur, rub or gallop. ABDOMEN: Soft, nontender, not distended, normoactive bowel sounds. MUSCULOSKELETAL: Normal range of motion at all joints. LOWER EXTREMITIES: 2+ pulses, warm, well-perfused. +Left calf tenderness, +2 pitting edema bilaterally NEUROLOGICAL: Cranial nerves II-XII intact. Normal speech. Normal gait. PSYCHIATRIC: Cooperative. Good eye contact. Appropriate mood and affect. SKIN: Warm, dry, normal turgor Laboratory Results - last 24 hr 05/30/19 05/30/19 05/30/19 14:00 14:00 14:00 WBC 10.0 RBC 4.86 Hgb 15.9 Hct 45.9 MCV 94.5 MCH 32.8 MCHC 34.7 RDW 16.2 H Plt Count 171 MPV 9.4 Absolute Neuts (auto) 7.1 Neutrophils % 71.2 Lymphocytes % 17.5 Monocytes % 9.6 Eosinophils % 1.0 Basophils % 0.7 Nucleated RBC % 0 PT with INR 14.80 H INR 1.25 H Sodium 136 Potassium 4.8 Chloride 100 Carbon Dioxide 29 Anion Gap 7 L BUN 15.2 Creatinine 1.0 Est GFR (CKD-EPI)AfAm 103.42 Est GFR (CKD-EPI)NonAf 89.23 Random Glucose 104 Calcium 8.2 L Total Bilirubin 1.1 H AST 45 H ALT 33 Alkaline Phosphatase 86 Total Protein 8.4 H Albumin 3.4 ASSESSMENT/PLAN: Patient is a 48 year old male with past medical history of HTN and peripheral edema, presented today due to left calf pain and swelling that started 3 weeks ago, and was found to have a left leg DVT at the urgent care today. #Left LE DVT -LLE doppler - Acute DVT, occlusive in the distal left femoral and distal left popliteal and nonocclusive in the mid left femoral and proximal popliteal veins. -Lovenox 140mg given once at the ED -will continue with heparin drip for now pending surgery recs, will dc with NOAC -VAscular surgery (Dr. Meeyr) consulted. #HTN -On Metoprolol tartrate 25mg bid and enalapril 50mg bid #Peripheral edema -On Lasix 40mg bid and spironolactone 50mg bid -PAtient not taking lasix, will hold for now -No previous cardiac work-up although regimen of meds seems to be for HF -will order echo #Elevated Tbili -will order RUQ US -Direct bilirubin #EtOH use -CIWA 0 -will continue to monitor for now #FEN -Not on any standing fluids -Electrolytes wnl, routine bmp monitoring -Sodium restricted diet #Prophylaxis -On heparin drip #Disposition -full code -admit to med surg Visit type - Emergency Visit Emergency Visit: Yes ED Registration Date: 05/30/19 Care time: The patient presented to the Emergency Department on the above date and was hospitalized for further evaluation of their emergent condition. - New Patient This patient is new to me today: Yes Date on this admission: 05/30/19 - Critical Care Critical Care patient: No ATTENDING PHYSICIAN STATEMENT I saw and evaluated the patient. I reviewed the resident's note and discussed the case with the resident. I agree with the resident's findings and plan as documented. SUBJECTIVE: OBJECTIVE: ASSESSMENT AND PLAN:
--- NOTE | 2019-05-30 18:14 | HP ---
Admitting History and Physical - Admission Chief Complaint: LE swelling History of Present Illness: 48 year old Male with PMHx of HTN and currently on suboxone who is an active smoker presents to ED from urgent care for suspicion of DVT. Per patient he has had 4 months of B/L LE swelling L>R and associated with calf pain. Patient has not had any recent travel or immobilization. Patient denies any dyspnea or dyspnea on exertion , orthopnea ,PND. Patient has no hx of DVT, or recent travel or surgeries and no fam hx of thrombotic disease. Patient states he can walk many blocks without stopping, can climb <1 flight and gets dyspnea. Otherwise denies fevers, chills, nausea, vomiting diarrhea constipation abdominal pain, chest pain , palpitations . PMH- HTN PSH- Left menisical tear Social-active smoker 1 ppd, EtOH use every other day Meds- metoprolol, spirinolactone, enalapril, lasix PRN Allergies: ASA , PNC - Smoking History Smoking history: Never smoked Have you smoked in the past 12 months: Yes Aproximately how many cigarettes per day: 20 - Alcohol/Substance Use Hx Alcohol Use: No Home Medications - Allergies Allergies/Adverse Reactions: Allergies Allergy/AdvReac Type Severity Reaction Status Date / Time aspirin Allergy Verified 05/30/19 13:09 Penicillins Allergy Verified 05/30/19 13:09 - Home Medications Home Medications: Ambulatory Orders Enalapril Maleate [Vasotec] 20 mg PO BID 08/02/15 Metoprolol Succinate [Toprol Xl -] 25 mg PO BID 08/02/15 Amlodipine Besylate [Norvasc -] 5 mg PO DAILY 09/17/17 Buprenorphine HCl/Naloxone HCl [Buprenorp-Nalox 4-1 mg Sl Film] 1 film SL BID 02/08/19 Furosemide [Lasix] 40 mg PO DAILY #14 tablet 02/08/19 Hydrochlorothiazide [Hctz -] 1 tab PO DAILY 02/08/19 Physical Examination Vital Signs: Vital Signs Temperature 98.2 F 05/30/19 13:09 Pulse Rate 82 05/30/19 13:09 Respiratory Rate 16 05/30/19 13:09 Blood Pressure 128/69 05/30/19 13:09 O2 Sat by Pulse Oximetry (%) 98 05/30/19 13:09 Constitutional: Yes: Well Nourished Cardiovascular: Yes: WNL, Regular Rate and Rhythm Respiratory: Yes: WNL, CTA Bilaterally Gastrointestinal: Yes: WNL, Normal Bowel Sounds, Soft Labs: CBC, BMP 05/30/19 14:00 05/30/19 14:00 Assessment/Plan 48 year old male with PMH HTN with c/c of LLE swelling admitted for LLE Acute occlusive DVT VS- Afebrile HR 82 BP 130/68 Labs: WBC 10 H/H 15.9/45 Plt 171 INR 1.25 CMP: Na 136 AST/ALT 45/33 ALP 86 Imaging: U/S Acute DVT occlusive in the distal left femoral and distal left popliteal and non occlusive in the mid left femoral and proximal popliteal 1-Acute DVT LLE Patient is obese- d/c lovenox and initiate heparin drip PTT Q 6 hourly x 2 therapeutic IR- any intervention with extent of DVT? 2-HTN Regimen of medications seems for HF TTE C/W Home meds metoprolol, Enalapril Lasix not taking can hold 3-Supportive Care Diet regular Diet consult DVT Px- on heparin drip GI Px not indicated Dispo- Regular floor Smoker- Nicotine gum PRN Visit type - Emergency Visit Emergency Visit: Yes ED Registration Date: 05/30/19 Care time: The patient presented to the Emergency Department on the above date and was hospitalized for further evaluation of their emergent condition. - New Patient This patient is new to me today: Yes Date on this admission: 05/30/19 - Critical Care Critical Care patient: No
[2019-05-30] MEDS ORDERED: HEPARIN INFUSION - 500 ML IV SCH (18:15)
[2019-05-30] MEDS ORDERED: NICOTINE POLACRILEX 2 MG GUM BUC PRN (18:23)
[2019-05-30] MEDS ORDERED: HEPARIN INFUSION - 25,000 UNITS/500 ML INFUS.BAG IVPB SCH (18:30)
[2019-05-30] MEDS ORDERED: ACETAMINOPHEN 325 MG TABLET (FP) PO PRN (18:59)
[2019-05-30] MEDS ORDERED: PT OWN MED DRAWER 7, Y5N ONE (20:12)
[2019-05-30] MEDS: SPIRONOLACTONE 25 MG TABLET (FP) PO SCH ×2 (21:48→23:22)
[2019-05-30] MEDS: METOPROLOL TARTRATE 25 MG TABLET (FP) PO SCH ×2 (21:49→23:22)
[2019-05-30] MEDS: BUPRENORPHINE/NALOXONE 2 MG/0.5 MG FILM PACKET SL SCH ×2 (21:49→23:22)
[2019-05-30] MEDS: ENALAPRIL MALEATE 10 MG TABLET (FP) PO SCH ×2 (21:49→23:22)
[2019-05-30] MEDS: HEPARIN - 25,000 UNIT in SODIUM CHLORIDE 495 ML IV SCH (21:53)
[2019-05-31] MEDS: HEPARIN - 25,000 UNIT in SODIUM CHLORIDE 495 ML IV SCH (05:06)
[2019-05-31 05:29] VITALS: BMI 46.3
[2019-05-31 07:56] LABS: ALBUMIN 2.7 g/dl (3.4-5.0); BILIRUBIN,TOTAL 1.3 mg/dL (0.2-1); BLOOD UREA NITROGEN 15.5 mg/dL (7-18); CALCIUM 7.7 mg/dL (8.5-10.1); CREATININE 0.9 mg/dL (0.55-1.3); MAGNESIUM 1.8 mg/dL (1.8-2.4); PHOSPHOROUS 3.2 mg/dL (2.5-4.9)
[2019-05-31 08:04] LABS: BASO % 0.9 % (0-2.0); EOS % 4.3 % (0-4.5); HEMATOCRIT 38.1 % (35.4-49); HEMOGLOBIN 13.2 GM/dL (11.7-16.9); LYMPH % 30.5 % (8-40); MCH 32.8 pg (25.7-33.7); MCHC 34.6 g/dl (32.0-35.9); MEAN CELL VOLUME 94.9 fl (80-96); MEAN PLT VOLUME 9.2 fl (7.5-11.1); MONO % 11.9 % (3.8-10.2); NEUT % 52.4 % (42.8-82.8); PLATELET COUNT 118 K/MM3 (134-434); RBC 4.01 M/mm3 (4.00-5.60); RDW 16.2 % (11.9-15.9); WHITE BLOOD COUNT 5.6 K/mm3 (4.0-10.0)
[2019-05-31] MEDS ORDERED: HEPARIN - 25,000 UNIT in SODIUM CHLORIDE 495 ML IV SCH ×2 (09:00→09:15)
[2019-05-31] MEDS ORDERED: HEPARIN NA (PORCINE) 5,000 UNITS/ML 1ML VIAL IVPUSH PRN ×5 (09:00→09:06)
[2019-05-31] MEDS ORDERED: HEPARIN NA (PORCINE) 5,000 UNITS/ML 1ML VIAL IVPUSH ONE (09:08)
[2019-05-31] MEDS ORDERED: HEPARIN INFUSION - 25,000 UNITS/500 ML INFUS.BAG IVPB SCH (09:15)
[2019-05-31] MEDS ORDERED: PT OWN MED DRAWER 7, Y5N ONE ×3 (09:26→11:44)
[2019-05-31] MEDS: ENALAPRIL MALEATE 10 MG TABLET (FP) PO SCH (09:32)
[2019-05-31] MEDS: METOPROLOL TARTRATE 25 MG TABLET (FP) PO SCH (09:32)
[2019-05-31] MEDS: SPIRONOLACTONE 25 MG TABLET (FP) PO SCH (09:32)
[2019-05-31] MEDS: BUPRENORPHINE/NALOXONE 2 MG/0.5 MG FILM PACKET SL SCH (09:33)
--- NOTE | 2019-05-31 10:29 | EKG ---
Test Reason : Blood Pressure : / mmHG Vent. Rate : 070 BPM Atrial Rate : 070 BPM P-R Int : 154 ms QRS Dur : 098 ms QT Int : 398 ms P-R-T Axes : -09 038 023 degrees QTc Int : 429 ms NORMAL SINUS RHYTHM SEPTAL INFARCT (CITED ON OR BEFORE 08-FEB-2019) ABNORMAL ECG Confirmed by Masood Mccullough MD ([id number]) on 05/31/2019 10:28:52 AM Referred By: Confirmed By:Masood Mccullough MD
--- NOTE | 2019-05-31 11:40 | CONSULT ---
Consult - History of Present Illness History of Present Illness: 48 year old man presents with 2-3 weeks of worsening left calf pain. Duplex shows acute on chronic DVT of left femoral and popliteal veins. He has no prior history of DVT and no family history of VTE. PMH notable for morbid obesity, narcotic abuse, HTN. Calf remains very painful especially when trying to stand. - History Source History Provided By: Patient - Alcohol/Substance Use Hx Alcohol Use: Yes - Smoking History Smoking history: Current every day smoker Have you smoked in the past 12 months: Yes Aproximately how many cigarettes per day: 20 Home Medications - Allergies Allergies/Adverse Reactions: Allergies Allergy/AdvReac Type Severity Reaction Status Date / Time aspirin Allergy Verified 05/30/19 13:09 Penicillins Allergy Verified 05/30/19 13:09 - Home Medications Home Medications: Ambulatory Orders Enalapril Maleate [Vasotec] 20 mg PO BID 08/02/15 Metoprolol Succinate [Toprol Xl -] 25 mg PO BID 08/02/15 Amlodipine Besylate [Norvasc -] 5 mg PO DAILY 09/17/17 Buprenorphine HCl/Naloxone HCl [Buprenorp-Nalox 4-1 mg Sl Film] 1 film SL BID 02/08/19 Furosemide [Lasix] 40 mg PO DAILY #14 tablet 02/08/19 Hydrochlorothiazide [Hctz -] 1 tab PO DAILY 02/08/19 Physical Exam Vital Signs: Vital Signs Temperature 97.7 F 05/31/19 07:00 Pulse Rate 61 05/31/19 07:00 Respiratory Rate 20 05/31/19 07:00 Blood Pressure 145/88 05/31/19 07:00 O2 Sat by Pulse Oximetry (%) 95 05/31/19 05:36 Constitutional: Yes: Obese Edema: Yes Edema: LLE: 2+, RLE: 2+ Peripheral Pulses WNL: Yes Labs: CBC, BMP 05/31/19 07:00 05/31/19 07:00 Imaging - Results Ultrasound: Image Reviewed Problem List - Problems (1) DVT (deep venous thrombosis) Assessment/Plan: New DVT left leg, unprovoked. Management with anticoagulants, leg elevation and support hose recommended. No indication for venous thrombolysis. Rec: Start Eliquis 10 mg BID x 7 days then decrease to 5 mg BID for 3 months. I will follow in office. Problems reviewed: Yes Code(s): I82.409 - ACUTE EMBOLISM AND THOMBOS UNSP DEEP VN UNSP LOWER EXTREMITY Qualifiers: DVT location: lower extremity Affected thrombotic vein of extremity: popliteal Chronicity: acute Laterality: left Qualified Code(s): I82.432 - Acute embolism and thrombosis of left popliteal vein
[2019-05-31] MEDS ORDERED: NICOTINE 21 MG/24 HOURS TOPICAL PATCH TD SCH (11:45)
--- NOTE | 2019-05-31 12:07 | DS ---
Physical Examination Vital Signs: Vital Signs Temperature 97.7 F 05/31/19 07:00 Pulse Rate 61 05/31/19 07:00 Respiratory Rate 20 05/31/19 07:00 Blood Pressure 145/88 05/31/19 07:00 O2 Sat by Pulse Oximetry (%) 95 05/31/19 05:36 Cardiovascular: Yes: WNL Respiratory: Yes: WNL Gastrointestinal: Yes: WNL Labs: CBC, BMP 05/31/19 07:00 05/31/19 07:00 Discharge Summary Problems reviewed: Yes Reason For Visit: DVT Current Active Problems DVT (deep venous thrombosis) (Acute) Hospital Course: 48 year old man presents with 2-3 weeks of worsening left calf pain.Duplex shows acute on chronic DVT of left femoral and popliteal veins / and right lower extremity negative for DVT. Vascular consulted for any intervention - anticoagulation as prescribed (eliquis) recommended with follow up in office . Patient to report back if any concern with DVT or dyspnea or any sign of bleeding. Condition: Stable - Instructions - Home Medications Comprehensive Discharge Medication List: Ambulatory Orders Enalapril Maleate [Vasotec] 20 mg PO BID 08/02/15 Metoprolol Succinate [Toprol Xl -] 25 mg PO BID 08/02/15 Amlodipine Besylate [Norvasc -] 5 mg PO DAILY 09/17/17 Buprenorphine HCl/Naloxone HCl [Buprenorp-Nalox 4-1 mg Sl Film] 1 film SL BID 02/08/19 Furosemide [Lasix] 40 mg PO DAILY #14 tablet 02/08/19 Hydrochlorothiazide [Hctz -] 1 tab PO DAILY 02/08/19 This patient is new to me today: Yes Date on this admission: 05/31/19 Emergency Visit: Yes ED Registration Date: 05/30/19 Care time: The patient presented to the Emergency Department on the above date and was hospitalized for further evaluation of their emergent condition. Critical Care patient: No - Discharge Referral Referred to [facility] Med P.C.: No
[2019-05-31] MEDS ORDERED: APIXABAN 5 MG TABLET PO SCH ×2 (12:45→14:42)
--- NOTE | 2019-05-31 16:42 | PN ---
Progress Note, Physician History of Present Illness: 48 year old male with PMH HTN with c/c of LLE swelling admitted for LLE Acute oc clusive DVT. - Current Medication List Current Medications: Active Medications Acetaminophen (Tylenol -) 650 mg PO Q6H PRN PRN Reason: PAIN LEVEL 1-5 Last Admin: 05/30/19 21:48 Dose: 650 mg Documented by: Apixaban (Eliquis -) 10 mg PO BID [facility] Last Admin: 05/31/19 15:32 Dose: 10 mg Documented by: Buprenorphine/Naloxone (Suboxone 2 Mg/0.5 Mg Film Packet) 2 each SL BID [facility] Last Admin: 05/31/19 09:33 Dose: 2 each Documented by: Enalapril Maleate (Vasotec -) 20 mg PO BID [facility] Last Admin: 05/31/19 09:32 Dose: 20 mg Documented by: Metoprolol Tartrate (Lopressor -) 25 mg PO BID [facility] Last Admin: 05/31/19 09:32 Dose: 25 mg Documented by: Nicotine (Nicoderm Patch -) 21 mg TD DAILY [facility] Last Admin: 05/31/19 11:47 Dose: 21 mg Documented by: Nicotine Polacrilex (Nicorette Gum -) 2 mg BUC Q2H PRN PRN Reason: NICOTINE REPLACEMENT RX Last Admin: 05/31/19 11:47 Dose: 2 mg Documented by: Spironolactone (Aldactone -) 50 mg PO BID [facility] Last Admin: 05/31/19 09:32 Dose: 50 mg Documented by: - Objective Vital Signs: Vital Signs Temperature 97.8 F 05/31/19 14:00 Pulse Rate 62 05/31/19 14:00 Respiratory Rate 20 05/31/19 14:00 Blood Pressure 140/72 05/31/19 14:00 O2 Sat by Pulse Oximetry (%) 98 05/31/19 13:00 Labs: CBC, BMP 05/31/19 07:00 05/31/19 07:00 INR, PTT INR 1.25 (0.83-1.09) H 05/30/19 14:00 Impression/Plan Impression/Plan: 1-Acute DVT LLE No DVT IN RLE Eliquis initiated, leg elevation Vascular surgery consult appreciated 2-HTN Regimen of medications seems for HF C/W Home meds metoprolol, Enalapril Lasix not taking can hold Will f/u as o/p with PMD 3-Supportive Care Diet regular Diet consult DVT Px- on eliquis Visit type - Emergency Visit Emergency Visit: Yes ED Registration Date: 05/30/19 Care time: The patient presented to the Emergency Department on the above date and was hospitalized for further evaluation of their emergent condition. - New Patient This patient is new to me today: No - Critical Care Critical Care patient: No - Discharge Referral Referred to [facility] Med P.C.: No
[2019-05-31 17:14] VITALS: BP 132/75; PULSE 63; TEMP 97.6
== END 2019-05-31 17:18 | disposition home or self-care (01) | DRG 300 ==
LOC: JER 12:57 → JERBED 17:38 → INTOOBSV 17:38 → UNDOADMOB 17:38 → OBSVTOIN 18:03 → JERBED 18:03 → INTOOBSV 18:03 → J8W 18:46
PROVIDERS: ADMIT Internal Medicine; ATTEND Internal Medicine
DX: I82.412 Acute embolism and thrombosis of left femoral vein (principal); Z68.42 Body mass index [BMI] 45.0-49.9, adult; I82.432 Acute embolism and thrombosis of left popliteal vein; E66.01 Morbid (severe) obesity due to excess calories; I10 Essential (primary) hypertension; F17.210 Nicotine dependence, cigarettes, uncomplicated
CPT/HCPCS: 36415; 76705-TC; 80053; 82248; 83735; 84100; 85025; 85610; 85730; 93005; 93010; 93971-TC; 97116-GP; 97161-GP; 99285-25; G0378; J1644

== ENCOUNTER 2019-10-19 17:21 | Inpatient (IN) | payer BC, OTHER ==
--- NOTE | 2019-10-19 17:29 | PDOC ---
Rapid Medical Evaluation Time Seen by Provider: 10/19/19 17:27 Medical Evaluation: Allergies Allergy/AdvReac Type Severity Reaction Status Date / Time aspirin Allergy Verified 05/30/19 13:09 Penicillins Allergy Verified 05/30/19 13:09 10/19/19 17:27 Pt presents for abnormal labs, states has high K Exam: NAD Orders: labs Pt to proceed to the ER for further evaluation
--- NOTE | 2019-10-19 17:36 | PDOC ---
History of Present Illness - General Chief Complaint: Revisit, Lab Variance Stated Complaint: LAB ABNORMAL Time Seen by Provider: 10/19/19 17:27 Past History - Medical History Allergies/Adverse Reactions: Allergies Allergy/AdvReac Type Severity Reaction Status Date / Time aspirin Allergy Verified 10/19/19 17:31 Penicillins Allergy Verified 10/19/19 17:31 Home Medications: Ambulatory Orders Enalapril Maleate [Vasotec] 20 mg PO BID 08/02/15 Metoprolol Succinate [Toprol Xl -] 25 mg PO BID 08/02/15 Amlodipine Besylate [Norvasc -] 5 mg PO DAILY 09/17/17 Buprenorphine HCl/Naloxone HCl [Buprenorp-Nalox 4-1 mg Sl Film] 1 film SL BID 02/08/19 Furosemide [Lasix] 40 mg PO DAILY #14 tablet 02/08/19 Hydrochlorothiazide [Hctz -] 1 tab PO DAILY 02/08/19 Apixaban [Eliquis - Starter Pack (For VTE)] 5 mg PO UTDICT 30 Days #30 tab 05/31/19 Cardiac Disorders: Yes (peripheral edema) COPD: No DVT: Yes (LLE) HTN: Yes Liver Disease: Yes - Surgical History Orthopedic Surgery: Yes (R knee arthoscopy) - Psycho-Social/Smoking History Smoking History: Never smoked Have you smoked in the past 12 months: Yes Number of Cigarettes Smoked Daily: 20 'Breaking Loose' booklet given: 09/17/17 - Substance Abuse Hx (Audit-C & DAST Scrn) How often the patient has a drink containing alcohol: Never Score: In Men: 4 or > Positive; In Women: 3 or > Positive: 0 Screen Result (Pos requires Nsg. Audit-10AR): Negative *Physical Exam - Vital Signs Last Vital Signs Temp Pulse Resp BP Pulse Ox 98.6 F 77 18 123/64 99 10/19/19 17:27 10/19/19 17:27 10/19/19 17:27 10/19/19 17:27 10/19/19 17:27 ED Treatment Course - LABORATORY CBC & Chemistry Diagram: 10/19/19 18:00 10/19/19 18:00 Medical Decision Making - Medical Decision Making 10/19/19 17:44 HPI: 48yo M hx chronic lower back pain, suboxone use, history of alcohol abuse (case of beer/day until stopped cold turkey 2.5wks ago) with subsequent c irrhosis/esophageal varices and peripheral edema, morbid obesity, hypertension, DVT (06/12, was on eliquis, d/c'd a few weeks ago), and 1 ppd smoking sent by for hyperkalemia 6.2 (test done yesterday) c/o exertional muscle weakness x1mo. Yesterday told to just f/u with PCP on Sunday but today UC called and told to come here for the K 6.2; also told him he had something off with his kidneys (denies hx kidney issues). Unchanging, not worsening, not worse at beginning or end of day, resolves with rest. Complains of jaw, back, and all extremity weakness/fatigue with walking or minimal exertion. Feels like muscle fatigue experiences after doing hard workout (like 100 bench presses) and in all muscles even if only walking a few steps and not using those others muscles. Also endorses jaw pain after chewing approx 8 times. Endorses chronic intermittent dizziness/light-headedness when stands up quickly, worsened the past month. Endorses chronic numbness to patch R lateral thigh x1.5yrs, unchanged, no new numbness/tingling, believes due to chronic back issues (believes spondylosis). Only change in medication is prescribed lasix for peripheral edema >1yr ago but only taking it intermittently (because doesn't like urinating so frequently) but started taking it as prescribed consistently approx 1mo ago/when sx started. Taking spironolactone and HTN meds x >1yr, unchanged doses recently. 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 Endorses 15lb weight gain when stopped working but then dieted (no crash or keto or bizarre diets, no diet pills) and lost the 15lbs again. Endorses frequent urination x years, approx c/30min and only little comes out, denies pain or dysuria or hematuria, has not been evaluated by PCP yet for prostate etc. Endorses sleeping elevated, can't lie down to sleep, wakes up from sleep gasping for air/snoring, believes has KIM but never been evaluated for it and doesn't use CPAP. Denies outdoor activity/camping, bug bites, tick bites, toxin exposure, drug use, recent illness, hx neuromuscular disorders, FHx neuromuscular disorders, vision changes, headaches, new numbness/tingling, ptosis, difficulty speaking, difficulty walking, night sweats, unintentional weight loss, CP, SOB, D/C, F/C, fall, head injury, trauma, statin use. PCP - not on staff, in [place] ROS: Constitutional: Negative for chills, fever, fatigue, diaphoresis. HENT: Negative for sore throat, rhinorrhea, congestion. Eyes: Negative for visual disturbance. Respiratory: Negative for shortness of breath, cough, and wheezing. Cardiovascular: Negative for chest pain, palpitations, and leg swelling. Gastrointestinal: Negative for abdominal pain, blood in stool, constipation, diarrhea, nausea, and vomiting. Genitourinary: Positive for frequency. Negative for dysuria, flank pain, and hematuria. Musculoskeletal: Positive for myalgias, chronic back pain unchanged. Negative for neck pain. Skin: Negative for rash. Neurological: Positive for light-headedness, chronic numbness R lateral thigh. N egative for vertigo, syncope, weakness, and headaches. Psychiatric/Behavioral: Negative for behavioral problems and confusion. PE: Gen: Alert, NAD, comfortable-appearing, obese HEENT: PERRL, EOMI, MMM, NCAT. No conjunctival pallor. Sclera are non-icteric. CV: Regular rate and rhythm. No murmurs, rubs, or gallops. PULM: No resp distress. CTAB, no wheezes, rales, or rhonchi. ABD: protuberant soft, NT/ND, no rebound tenderness or guarding, no CVA tenderness. BACK: No TTP of c/t/l-spine. No step-offs or deformities. MSK: No bony deformities. 2+ pulses in all extremities. NEURO: CN 2-12 intact. 5/5 strength in all extremities. Sensation to light touch intact in all extremities. No pronator drift. No dysmetria. No dysdiadochokinesia. No abnormal nystagmus. Normal gait. EXTREMITIES: No cyanosis. No clubbing. 2+ BLE pitting edema. No calf tenderness. PSYCH: Normal mood and thought pattern. SKIN: Warm and dry. Normal capillary refill. No rashes. No jaundice. MDM: 48yo M hx chronic lower back pain, suboxone use, history of alcohol abuse (case of beer/day until stopped cold turkey 2.5wks ago) with subsequent cirrhosis/esophageal varices and peripheral edema, morbid obesity, hypertension, and ppd smoking sent by for hyperkalemia 6.2 (test done yesterday) c/o exertional muscle weakness x1mo. Hemodynamically stable, afebrile, neurologically intact. Ddx: neuromuscular disorder (such as myasthenia gravis, GBS, myositis, lyme), thyroid pathology, medication change such as lasix, infection, metabolic derangement, anemia, ACS/UT, arrhythmia -EKG -CXR -CBC,CMP,Coags,Mg,Phos,Cardiac profile,TSH,free T4 -Dispo: pending workup and reassessment, likely d/c home EKG reviewed: normal sinus rhythm, 70bpm, normal axis, normal intervals, no TWIs, no ST elevations or depressions, no peaked T waves, no significant changes compared to prior 05/30/19 POCUS US: normal echo 10/19/19 19:12 Labs reviewed: notable for ROBERT and K 5.7 CXR reviewed: no acute pathology -1L NS -Albuterol 1amp -Insulin 10 units -D50 50mg -Sodium bicarb 8.4% 50meq -Lokelma 10g 10/19/19 19:36 Would like to consult neurology and nephrology but pt is unwilling to stay in the hospital due to work. Spoke to Nephrology Dr Swapna myers f/u outpatient but will not consult at this time due to pt's unwillingness to stay Spoke to Neurology Dr Floyd myers see pt this Sunday at 2pm 10/19/19 19:52 Discussed risks and benefits of staying vs leaving AMA. Pt now willing to stay. Dr Barcenas informed - consult placed Admit med/surg for ROBERT, hyperkalemia, neuro eval 10/19/19 20:21 Admitted/signed out to WAYNE Broderick Discharge - Discharge Information Problems reviewed: Yes Clinical Impression/Diagnosis: Bilateral leg edema, ROBERT (acute kidney injury), Hyperkalemia, Myalgia Condition: Stable - Admission Yes - Follow up/Referral - Patient Discharge Instructions - Post Discharge Activity
[2019-10-19 18:13] LABS: BASO % 0.9 % (0-2.0); EOS % 2.5 % (0-4.5); HEMATOCRIT 36.9 % (35.4-49); HEMOGLOBIN 12.7 GM/dL (11.7-16.9); LYMPH % 21.2 % (8-40); MCH 34.1 pg (25.7-33.7); MCHC 34.4 g/dl (32.0-35.9); MEAN CELL VOLUME 99.1 fl (80-96); MEAN PLT VOLUME 10.5 fl (7.5-11.1); MONO % 9.6 % (3.8-10.2); NEUT % 65.8 % (42.8-82.8); PLATELET COUNT 137 K/MM3 (134-434); RBC 3.73 M/mm3 (4.00-5.60); RDW 13.7 % (11.9-15.9); WHITE BLOOD COUNT 8.1 K/mm3 (4.0-10.0)
--- NOTE | 2019-10-19 18:22 | PDOC ---
Documentation entered by Alvarado Rivera SCRIBE, acting as scribe for Ashley Piedra MD. Ashley Piedra MD: This documentation has been prepared by the rudiibe, Alvarado Rivera SCRIBE, under my direction and personally reviewed by me in its entirety. I confirm that the documentation accurately reflects all work, treatment, procedures, and medical decision making performed by me. Attending Attestation - Resident Resident Name: Coleen Jaffe - ED Attending Attestation I have performed the following: I have examined & evaluated the patient, The case was reviewed & discussed with the resident, I agree w/resident's findings & plan, Exceptions are as noted - HPI HPI: 10/19/19 18:13 48 yo male h/o etoh abuse, borderline cirrhoisis, ckd, HTN , 1ppd smoker, here months of progressive weakness, orthopnea, PND. states he stopped drinking 2 weeks ago. denies hematuria. no focal weakness. no n/v no muscle pain. was seen at [facility] urgent care, had labs drawn, found to have a potassium of 6. called today to go to ER for repeat labs. unknown if hemolysis. no melena, no cp no other current complaints. has not seen nuerologist for his progressive weakness yet. no family h/o MS or any nueromuscular disease. was started on lasix year ago, but only recently compliant with taking it regularily. also c/o feeling lightheaded with going from bending down to standing or sitting to standing. 10/19/19 18:26 10/19/19 18:42 10/19/19 18:43 - Physicial Exam PE: 10/19/19 18:40 awake alert lungs clear bilat heart rrr no mrg abd soft obese nt. ext wwp. no edema. no calf tenderness. nuero 5/5 all four ext. speech clear. alert oriente x 3. - Medical Decision Making 10/19/19 18:40 48 yo male h/o obesisty, htn cirrhoisis, etoh abuse (sober 2 weeks) here with exertional myalgia, fatigue, reportedlyl high sodium differential hypothyroid, new onset diabetes, cardiomyopathy related to etoh abuse, anemia ( h/o esophageal varices) plan cxr labs focused ED TTE, repeat cmmp. myositis. plan totak CK if all labs normal.. consider dc home with nuero followup. focused ED TTE normal contractility no pericardial effusion. no rv dilation or strain. impression normal echo. 10/19/19 18:42 Heart Score/ECG Review #1 ECG reviewed & interpreted by me at: 18:43 General ECG Interpretation: Sinus Rhythm, Normal Rate (70), Normal Intervals, No acute ischemic changes (nonspecific TWI III only.) Discharge - Discharge Information Problems reviewed: Yes Clinical Impression/Diagnosis: Bilateral leg edema, ROBERT (acute kidney injury), Hyperkalemia, Myalgia Condition: Improved Disposition: HOME - Follow up/Referral - Patient Discharge Instructions - Post Discharge Activity
[2019-10-19 18:25] LABS: INR 1.12 (0.83-1.09); PROTHROMBIN TIME (PATIENT) 13.2 SEC (9.7-13.0)
[2019-10-19 18:27] LABS: ACTIVATED PTT 31.1 SECONDS (25.2-36.5)
[2019-10-19 18:48] LABS: ALBUMIN 3.4 g/dl (3.4-5.0); ALK PHOS 51 U/L (45-117); ANION GAP 6 MMOL/L (8-16); BILIRUBIN,TOTAL 0.3 mg/dL (0.2-1); BLOOD UREA NITROGEN 40.5 mg/dL (7-18); CALCIUM 9.2 mg/dL (8.5-10.1); CHLORIDE 109 mmol/L (98-107); CO2 21 mmol/L (21-32); CREATININE 1.6 mg/dL (0.55-1.3); GLUCOSE,RANDOM 101 mg/dL (74-106); POTASSIUM 5.7 mmol/L (3.5-5.1); SGOT/AST 43 U/L (15-37); SGPT/ALT 53 U/L (13-61); SODIUM 137 mmol/L (136-145); TOT PROT 7.4 g/dl (6.4-8.2)
[2019-10-19] MEDS ORDERED: SODIUM CHLORIDE 0.9% 500 ML INFUS.BAG IV ONE (19:02)
[2019-10-19 19:17] LABS: MAGNESIUM 2.1 mg/dL (1.8-2.4); PHOSPHOROUS 4.3 mg/dL (2.5-4.9)
[2019-10-19] MEDS ORDERED: INSULIN REGULAR HUMAN 100 UNITS/ML *VIAL IVPUSH ONE (19:21)
[2019-10-19] MEDS ORDERED: ALBUTEROL SO4 0.083% IH SOL 2.5 MG/3 ML VIAL.NEB. NEB ONE ×2 (19:22→19:57)
[2019-10-19] MEDS ORDERED: DEXTROSE 50%-WATER - 25 GM/50 ML VIAL IVPUSH ONE (19:22)
[2019-10-19] MEDS ORDERED: DEXTROSE 50%-WATER - 25 GM/50 ML VIAL ONE (19:32)
[2019-10-19] MEDS ORDERED: SODIUM BICARBONATE 8.4% 50 MEQ/50 ML DISP.SYRIN IVPUSH ONE (19:40)
[2019-10-19] MEDS ORDERED: SODIUM ZIRCONIUM CYCLOSILICATE (LOKELMA) 5 GM PACKET PO ONE (19:40)
[2019-10-19] MEDS ORDERED: SODIUM BICARBONATE 8.4% 50 MEQ/50 ML VIAL ONE (19:57)
--- NOTE | 2019-10-19 20:38 | HP ---
Admitting History and Physical - Primary Care Physician PCP: Not on Staff - Admission Chief Complaint: Abnormal Lab Value,Bilateral LE Edema, Muscle Aches History of Present Illness: This is a 48 male with a PMHx of HTN, DVT LLE (Eliquis, d/c 2 weeks ago), Alcohol Abuse (stopped 2 weeks ago), Cirrhosis, Esophageal Varices, Chronic Back Pain (on Suboxone), Tobacco Dependency. Who presents to the ED for abnormal lab value K 6.2. Patient reports being told by the urgent care center to follow up with his PCP then called back and told to go the ED for evaluation. Patient reports going to urgent care for exertional muscle weakness x 1 month. Patient reports having jaw, lumbar weakness, worsening fatigue. Patient reports increased myalgias since returning to work 2 weeks ago. Patient denies fever, chills, cough, SOB, dizziness, GLOVER, CP, palpitations, AP, N/V/D, constipation, hematochezia, melena, hematuria, dysuria. Patient denies sick contacts or recent travel. History Source: Patient Limitations to Obtaining History: No Limitations - Past Medical History Cardiovascular: Yes: Aortic Insufficiency, Deep Vein Thrombosis (LLE (stopped taking Eliquis 1 month ago)), Other (Peripheral Edema) Gastrointestinal: Yes: Esophageal Varices Hepatobiliary: Yes: Cirrhosis Psych: Yes: Addictions Musculoskeletal: Yes: Chronic low back pain Additional Past Medical History: Severe Obesity - Past Surgical History Additional Past Surgical History: Right Knee Meniscal Tear Repair - Smoking History Smoking history: Never smoked Have you smoked in the past 12 months: Yes Aproximately how many cigarettes per day: 20 (+30 year hx) - Alcohol/Substance Use Hx Alcohol Use: No (Alcohol Abuse Hx) Number of Drinks Daily: 12 (case of beer daily, stopped 2.5 weeks ago) History of Substance Use: reports: Prescription (on Buprenorphine/suboxone) - Social History Usual Living Arrangement: Yes: With Spouse Do you think of yourself as: Straight/Heterosexual ADL: Independent 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- [employer] History of Recent Travel: No Home Medications - Allergies Allergies/Adverse Reactions: Allergies Allergy/AdvReac Type Severity Reaction Status Date / Time aspirin Allergy Verified 10/19/19 17:31 Penicillins Allergy Verified 10/19/19 17:31 - Home Medications Home Medications: Ambulatory Orders Enalapril Maleate [Vasotec] 20 mg PO BID 08/02/15 Metoprolol Succinate [Toprol Xl -] 25 mg PO BID 08/02/15 Buprenorphine HCl/Naloxone HCl [Buprenorp-Nalox 4-1 mg Sl Film] 1 film SL BID 02/08/19 Furosemide [Lasix] 20 mg PO DAILY 10/19/19 Spironolactone 50 mg PO BID 10/19/19 Family Medical History Family Hx Coronary Artery Disease: Grandmother (paternal), Grandfather (maternal) Review of Systems - Review of Systems Constitutional: reports: Weakness Eyes: reports: No Symptoms HENT: reports: No Symptoms Neck: reports: No Symptoms Cardiovascular: reports: Edema Respiratory: reports: No Symptoms Gastrointestinal: reports: No Symptoms Genitourinary: reports: Frequency Breasts: reports: No Symptoms Reported Musculoskeletal: reports: Back Pain, Muscle Pain, Muscle Weakness Integumentary: reports: No Symptoms Neurological: reports: Parasthesia, Weakness Hematology/Lymphatic: reports: No Symptoms Psychiatric: reports: No Symptoms Physical Examination Vital Signs: Vital Signs Temperature 98.6 F 10/19/19 17:27 Pulse Rate 77 10/19/19 17:27 Respiratory Rate 18 10/19/19 17:27 Blood Pressure 123/64 10/19/19 17:27 O2 Sat by Pulse Oximetry (%) 100 10/19/19 20:35 Constitutional: Yes: Well Nourished, No Distress, Calm, Obese Eyes: Yes: WNL, Conjunctiva Clear, EOM Intact, PERRL HENT: Yes: WNL, Atraumatic, Normocephalic Neck: Yes: WNL, Supple, Trachea Midline Cardiovascular: Yes: Regular Rate and Rhythm, S1, S2 Respiratory: Yes: WNL, Regular, CTA Bilaterally Gastrointestinal: Yes: WNL, Normal Bowel Sounds, Soft, Abdomen, Obese ...Rectal Exam: Yes: Deferred Renal/: Yes: WNL Breast(s): Yes: WNL Musculoskeletal: Yes: Back Pain, Muscle Pain Extremities: Yes: WNL Edema: Yes Edema: LLE: 1+, RLE: 1+ Peripheral Pulses WNL: Yes Integumentary: Yes: Tattoos Neurological: Yes: WNL, Alert, Oriented, Cran Nerves II-XII Intact ...Motor Strength: WNL Psychiatric: Yes: WNL, Alert, Oriented Labs: CBC, BMP 10/19/19 18:00 10/19/19 18:00 Laboratory Results - last 24 hr 10/19/19 10/19/19 10/19/19 18:00 18:00 18:00 WBC 8.1 RBC 3.73 L Hgb 12.7 Hct 36.9 MCV 99.1 H MCH 34.1 H MCHC 34.4 RDW 13.7 D Plt Count 137 MPV 10.5 D Absolute Neuts (auto) 5.4 Neutrophils % 65.8 D Lymphocytes % 21.2 D Monocytes % 9.6 Eosinophils % 2.5 Basophils % 0.9 Nucleated RBC % 0 PT with INR 13.20 H INR 1.12 H PTT (Actin FS) 31.1 Sodium 137 Potassium 5.7 H Chloride 109 H Carbon Dioxide 21 Anion Gap 6 L BUN 40.5 H Creatinine 1.6 H Est GFR (CKD-EPI)AfAm 58.59 Est GFR (CKD-EPI)NonAf 50.55 Random Glucose 101 Calcium 9.2 Phosphorus Magnesium Total Bilirubin 0.3 AST 43 H ALT 53 Alkaline Phosphatase 51 Creatine Kinase Troponin I Total Protein 7.4 Albumin 3.4 TSH Free T4 Urine Color Urine Appearance Urine pH Ur Specific Heron Urine Protein Urine Glucose (UA) Urine Ketones Urine Blood Urine Nitrite Urine Bilirubin Urine Urobilinogen Ur Leukocyte Esterase Opiates Screen Methadone Screen Barbiturate Screen Phencyclidine Screen Ur Amphetamines Screen MDMA (Ecstasy) Screen Benzodiazepines Screen Cocaine Screen U Marijuana (THC) Screen Alcohol, Quantitative < 3 10/19/19 10/19/19 10/19/19 18:00 20:00 22:20 WBC RBC Hgb Hct MCV MCH MCHC RDW Plt Count MPV Absolute Neuts (auto) Neutrophils % Lymphocytes % Monocytes % Eosinophils % Basophils % Nucleated RBC % PT with INR INR PTT (Actin FS) Sodium 138 Potassium 4.9 Chloride 111 H Carbon Dioxide 22 Anion Gap 5 L BUN 40.1 H Creatinine 1.5 H Est GFR (CKD-EPI)AfAm 63.34 Est GFR (CKD-EPI)NonAf 54.65 Random Glucose 98 Calcium 8.4 L Phosphorus 4.3 Magnesium 2.1 Total Bilirubin AST ALT Alkaline Phosphatase Creatine Kinase 137 Troponin I < 0.02 Total Protein Albumin TSH 1.39 Free T4 0.98 Urine Color Yellow Urine Appearance Clear Urine pH 5.0 Ur Specific Heron 1.017 Urine Protein Negative Urine Glucose (UA) Negative Urine Ketones Negative Urine Blood Negative Urine Nitrite Negative Urine Bilirubin Negative Urine Urobilinogen 0.2 Ur Leukocyte Esterase Negative Opiates Screen Methadone Screen Barbiturate Screen Phencyclidine Screen Ur Amphetamines Screen MDMA (Ecstasy) Screen Benzodiazepines Screen Cocaine Screen U Marijuana (THC) Screen Alcohol, Quantitative 10/20/19 01:45 WBC RBC Hgb Hct MCV MCH MCHC RDW Plt Count MPV Absolute Neuts (auto) Neutrophils % Lymphocytes % Monocytes % Eosinophils % Basophils % Nucleated RBC % PT with INR INR PTT (Actin FS) Sodium Potassium Chloride Carbon Dioxide Anion Gap BUN Creatinine Est GFR (CKD-EPI)AfAm Est GFR (CKD-EPI)NonAf Random Glucose Calcium Phosphorus Magnesium Total Bilirubin AST ALT Alkaline Phosphatase Creatine Kinase Troponin I Total Protein Albumin TSH Free T4 Urine Color Urine Appearance Urine pH Ur Specific Heron Urine Protein Urine Glucose (UA) Urine Ketones Urine Blood Urine Nitrite Urine Bilirubin Urine Urobilinogen Ur Leukocyte Esterase Opiates Screen Negative Methadone Screen Negative Barbiturate Screen Negative Phencyclidine Screen Negative Ur Amphetamines Screen Negative MDMA (Ecstasy) Screen Negative Benzodiazepines Screen Negative Cocaine Screen Negative U Marijuana (THC) Screen Negative Alcohol, Quantitative Intake & Output 10/17/19 10/18/19 10/19/19 10/20/19 23:59 23:59 23:59 23:59 Intake Total 370 Balance 370 Weight 154.856 kg Imaging - Results Chest X-ray: Image Reviewed EKG: Image Reviewed Problem List - Problems (1) Hyperkalemia Assessment/Plan: Likely secondary to medication Hyperkalemia Protocol given in ED Repeat CMP tonight EKG reviewed- NSR septal infarct age undetermined, no peaked T waves noted Monitor CMP Hold Enalapril, Spironolactone Monitor vitals Code(s): E87.5 - HYPERKALEMIA (2) ROBERT (acute kidney injury) Assessment/Plan: Likely due to medication vs Dehydration Cr 1.6 slightly above baseline IVF Appreciate Nephrology consult Monitor CMP Consider renal US Hold Lasix Code(s): N17.9 - ACUTE KIDNEY FAILURE, UNSPECIFIED (3) Bilateral leg edema Assessment/Plan: Will continue to monitor and treat with interventions accordingly Chest Xray-reviewed Will hold diuretics for now secondary to electrolyte imbalance, reassess tomorrow Elevate extremities Consider Cardiology consult Code(s): R60.0 - LOCALIZED EDEMA (4) Suspected COVID-19 virus infection Assessment/Plan: SMART-CIGAR PATCHER 1, low risk Covid PCR-pending Isolation Precautions Code(s): Z20.828 - CONTACT W AND EXPOSURE TO OTH VIRAL COMMUNICABLE DISEASES (5) Myalgia Assessment/Plan: r/o COVID 19-Infection Continue to monitor Tylenol prn Code(s): M79.10 - MYALGIA, UNSPECIFIED SITE (6) Generalized weakness Assessment/Plan: Appreciate Neurology consult Neuro checks Fall precautions Code(s): R53.1 - WEAKNESS (7) Chronic back pain Assessment/Plan: Continue home med, when verified Tylenol prn Code(s): M54.9 - DORSALGIA, UNSPECIFIED; G89.29 - OTHER CHRONIC PAIN (8) HTN (hypertension) Assessment/Plan: stable Hold Enalapril 2/2 Hyperkalemia Continue Metoprolol with parameters Monitor CMP Code(s): I10 - ESSENTIAL (PRIMARY) HYPERTENSION (9) Alcohol abuse Assessment/Plan: Per patient he quit 2 weeks ago Etoh level < 3 CIWA-Ar 0 Code(s): F10.10 - ALCOHOL ABUSE, UNCOMPLICATED Assessment/Plan This is a 48 y/o male with a PMHx of HTN, LLE DVT (stopped taking Eliquis 1 month ago), Alcohol Abuse, Cirrhosis, Esophageal Varices, Peripheral Edema, Chronic Low Back Pain. Admitted to /S for Hyperkalemia, ROBERT, Peripheral Edema, Generalized Weakness for further evaluation of their emergent condition. Plan: See Problem List FEN Fluid Restriction 1L Replete lytes prn Low Na Diet DVT ppx OOB Heparin SQ Dispo: Requires Inpatient Care Visit type - Emergency Visit Emergency Visit: Yes ED Registration Date: 10/19/19 Care time: The patient presented to the Emergency Department on the above date and was hospitalized for further evaluation of their emergent condition. - New Patient This patient is new to me today: Yes Date on this admission: 10/19/19 - Critical Care Critical Care patient: No
[2019-10-19 21:02] LABS: URINE APPEARANCE CLEAR; URINE BILIRUBIN NEGATIVE (NEGATIVE); URINE COLOR YELLOW; URINE GLUCOSE (UA) NEGATIVE (NEGATIVE); URINE KETONE NEGATIVE (NEGATIVE); URINE LEUK ESTERASE NEGATIVE (NEGATIVE); URINE NITRITE NEGATIVE (NEGATIVE); URINE PROTEIN NEGATIVE (NEGATIVE); URINE UROBILINOGEN 0.2 mg/dL (0.2-1.0)
[2019-10-19] MEDS: HEPARIN NA (PORCINE) 5,000 UNITS/ML 1ML VIAL SQ SCH (21:23)
[2019-10-20] LABS: BLOOD UREA NITROGEN 40.1 mg/dL (7-18); CALCIUM 8.4 mg/dL (8.5-10.1); CREATININE 1.5 mg/dL (0.55-1.3); POTASSIUM 4.9 mmol/L (3.5-5.1)
[2019-10-20 02:13] VITALS: BMI 47.6
[2019-10-20 03:12] LABS: OPIATES, URI NEGATIVE ng/ml (CUTOFF=300); URINE AMPHETAMINES NEGATIVE ng/ml (CUTOFF=500); URINE BARBITURATES NEGATIVE ng/ml (CUTOFF=200)
[2019-10-20 03:20] LABS: COCAINE, UR NEGATIVE ng/ml (CUTOFF=300); METHADONE, UR NEGATIVE ng/ml (CUTOFF=300); PHENCYCLIDINE,URINE NEGATIVE ng/ml (CUTOFF=25); URINE BENZODIAZEPINES NEGATIVE ng/ml (CUTOFF=200)
[2019-10-20] MEDS: HEPARIN NA (PORCINE) 5,000 UNITS/ML 1ML VIAL SQ SCH ×3 (05:47→21:05)
[2019-10-20 08:05] LABS: EOS % 3.2 % (0-4.5); HEMATOCRIT 33.4 % (35.4-49); HEMOGLOBIN 11.2 GM/dL (11.7-16.9); MCH 33.6 pg (25.7-33.7); MCHC 33.7 g/dl (32.0-35.9); MEAN CELL VOLUME 99.9 fl (80-96); MEAN PLT VOLUME 10.9 fl (7.5-11.1); MONO % 10.6 % (3.8-10.2); NEUT % 54.2 % (42.8-82.8); PLATELET COUNT 104 K/MM3 (134-434); RBC 3.34 M/mm3 (4.00-5.60); RDW 13.7 % (11.9-15.9); WHITE BLOOD COUNT 5.3 K/mm3 (4.0-10.0)
--- NOTE | 2019-10-20 08:25 | CON.NEURO ---
Consult Consult Specialty:: [facility] - Past Medical History Cardio/Vascular: Yes: Aortic Insufficiency, Deep Vein Thrombosis (LLE (stopped taking Eliquis 1 month ago)), Other (Peripheral Edema) Gastrointestinal: Yes: Esophageal Varices Hepatobiliary: Yes: Cirrhosis Psych: Yes: Addictions Musculoskeletal: Yes: Chronic low back pain - Alcohol/Substance Use Hx Alcohol Use: No (Alcohol Abuse Hx) Number of Drinks Daily: 12 (case of beer daily, stopped 2.5 weeks ago) History of Substance Use: reports: Prescription (on Buprenorphine/suboxone) - Smoking History Smoking history: Never smoked Have you smoked in the past 12 months: Yes Aproximately how many cigarettes per day: 20 (+30 year hx) - Social History ADL: Independent 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[employer]- [employer] History of Recent Travel: No Home Medications - Allergies Allergies/Adverse Reactions: Allergies Allergy/AdvReac Type Severity Reaction Status Date / Time aspirin Allergy Verified 10/19/19 17:31 Penicillins Allergy Verified 10/19/19 17:31 - Home Medications Home Medications: Ambulatory Orders Enalapril Maleate [Vasotec] 20 mg PO BID 08/02/15 Metoprolol Succinate [Toprol Xl -] 25 mg PO BID 08/02/15 Buprenorphine HCl/Naloxone HCl [Buprenorp-Nalox 4-1 mg Sl Film] 1 film SL BID 02/08/19 Furosemide [Lasix] 20 mg PO DAILY 10/19/19 Spironolactone 50 mg PO BID 10/19/19 Physical Exam-Neuro Vital Signs: Vital Signs Temperature 98.1 F 10/20/19 06:00 Pulse Rate 67 10/20/19 06:00 Respiratory Rate 20 10/20/19 06:00 Blood Pressure 89/47 L 10/20/19 06:00 O2 Sat by Pulse Oximetry (%) 93 L 10/20/19 06:00 Labs: INR, PTT INR 1.12 (0.83-1.09) H 10/19/19 18:00
[2019-10-20 08:28] LABS: ALBUMIN 2.9 g/dl (3.4-5.0); BILIRUBIN,TOTAL 0.5 mg/dL (0.2-1); BLOOD UREA NITROGEN 37.9 mg/dL (7-18); CALCIUM 8.3 mg/dL (8.5-10.1); CREATININE 1.3 mg/dL (0.55-1.3); POTASSIUM 4.9 mmol/L (3.5-5.1); TOT PROT 6.4 g/dl (6.4-8.2)
--- NOTE | 2019-10-20 09:33 | EKG ---
Test Reason : Blood Pressure : / mmHG Vent. Rate : 070 BPM Atrial Rate : 070 BPM P-R Int : 158 ms QRS Dur : 100 ms QT Int : 380 ms P-R-T Axes : -03 045 021 degrees QTc Int : 410 ms NORMAL SINUS RHYTHM SEPTAL INFARCT (CITED ON OR BEFORE 08-FEB-2019) ABNORMAL ECG WHEN COMPARED WITH ECG OF 30-MAY-2019 17:47, NO SIGNIFICANT CHANGE WAS FOUND Confirmed by Helga Murcia ([id number]) on 10/20/2019 9:32:51 AM Referred By: Confirmed By:Helga Murcia
[2019-10-20] MEDS: NICOTINE 14 MG/24 HOURS TOPICAL PATCH TD SCH (10:17)
--- NOTE | 2019-10-20 10:40 | PN ---
Teaching Attending Note Name of Resident: Gilma Maxwell ATTENDING PHYSICIAN STATEMENT I saw and evaluated the patient. I reviewed the resident's note and discussed the case with the resident. I agree with the resident's findings and plan as documented. SUBJECTIVE: pt seen and examined at bedside OBJECTIVE: Last Vital Signs Temp Pulse Resp BP Pulse Ox 98.1 F 67 20 89/47 L 93 L 10/20/19 06:00 10/20/19 06:00 10/20/19 06:00 10/20/19 06:00 10/20/19 06:00 GENERAL: Awake, alert, and fully oriented, in no acute distress. HEENT: NC/AT, PERRLA, neck supple no JVD, not pale/cyanosed or Jaundiced LUNGS: Breath sounds equal, clear to auscultation bilaterally. No wheezes, and no crackles. No accessory muscle use. HEART: Regular rate and rhythm, normal S1 and S2 ABDOMEN: Obese, Soft, nontender, not distended, BS+ MUSCULOSKELETAL: Normal range of motion at all joints. No bony deformities or tenderness. No CVA tenderness. UPPER EXTREMITIES: 2+ pulses, warm, well-perfused. No cyanosis. No clubbing. No peripheral edema. LOWER EXTREMITIES: 2+ pulses, warm, well-perfused. No calf tenderness. +1 edema. NEUROLOGICAL: Cranial nerves II-XII intact. Normal speech. ASSESSMENT AND PLAN: 48 male with a PMHx of HTN, DVT LLE (off Eliquis now), Alcohol Abuse (stopped 2 weeks ago), Cirrhosis, Esophageal Varices, Chronic Back Pain (on Suboxone), Tobacco Dependency. Who presents to the ED for abnormal lab value K 6.2. # Hyperkalemia in setting of ROBERT - causes: preRenal from Overdiurisis, Medications, Hepatorenal syndrome - Hyperkalemia resolved, Creat trended down - decompensated cirrhosis, varices, splenomegaly - c/w spironolactone, furosemide but will decrease dose if BP permit - low albumin, no more IV fluids - normal AG metabolic acidosis, hypercholremia? - d/c enalapril - may keep or dc metoprolol based on pressure - encourage abstinence from alcohol, wt loss - MELD score10, CPS- class A - check hep panel, vaccination record HepA, HepB, PCV23 - doubt US will be useful in setting of his obesity, may consider CT w contrast when renal status permit - will need GI/hepatology consult - nephrology consult DVT prophylaxis
--- NOTE | 2019-10-20 13:37 | CON.NEURO ---
Consult Consult Specialty:: [facility] Referred by:: PCP Reason for Consultation:: musce spasm - History of Present Illness History of Present Illness: 48 year sold man abiodun rosario PMHx of HTN, DVT LLE (Eliquis, d/c 2 weeks ago), Alcohol Abuse (stopped 2 weeks ago), Cirrhosis, Esophageal Varices, Chronic Back Pain (on Suboxone), Tobacco Dependency. Patient came in yesterday with cchief complaint of difficulty with the legs in the arms. According to the patient I saw him on the floor and actually the emergency room called me and said that he's can be discharged patient was admitted to the floor with difficulty with his legs patient was an alcoholic patient is on a blood thinner. According to the patient the last drink was 2 weeks ago. Patient never been on steroids - History Source History Provided By: Patient Limitations to Obtaining History: No Limitations - Past Medical History Cardio/Vascular: Yes: Aortic Insufficiency, Deep Vein Thrombosis (LLE (stopped taking Eliquis 1 month ago)), Other (Peripheral Edema) Gastrointestinal: Yes: Esophageal Varices Hepatobiliary: Yes: Cirrhosis Psych: Yes: Addictions Musculoskeletal: Yes: Chronic low back pain - Alcohol/Substance Use Hx Alcohol Use: No (Alcohol Abuse Hx) Number of Drinks Daily: 12 (case of beer daily, stopped 2.5 weeks ago) History of Substance Use: reports: Prescription (on Buprenorphine/suboxone) - Smoking History Smoking history: Never smoked Have you smoked in the past 12 months: Yes Aproximately how many cigarettes per day: 20 (+30 year hx) - Social History ADL: Independent 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[email or web address]] History of Recent Travel: No Home Medications - Allergies Allergies/Adverse Reactions: Allergies Allergy/AdvReac Type Severity Reaction Status Date / Time aspirin Allergy Verified 10/19/19 17:31 Penicillins Allergy Verified 10/19/19 17:31 - Home Medications Home Medications: Ambulatory Orders Enalapril Maleate [Vasotec] 20 mg PO BID 08/02/15 Metoprolol Succinate [Toprol Xl -] 25 mg PO BID 08/02/15 Buprenorphine HCl/Naloxone HCl [Buprenorp-Nalox 4-1 mg Sl Film] 1 film SL BID 02/08/19 Furosemide [Lasix] 20 mg PO DAILY 10/19/19 Spironolactone 50 mg PO BID 10/19/19 Family Medical History Family History: Unremarkable Review of Systems - Review of Systems Constitutional: reports: No Symptoms Eyes: reports: No Symptoms HENT: reports: No Symptoms Neurological: reports: Headache, Incoordination, Numbness, Parasthesia Physical Exam-Neuro Vital Signs: Vital Signs Temperature 98 F 10/20/19 11:05 Pulse Rate 66 10/20/19 11:05 Respiratory Rate 20 10/20/19 11:05 Blood Pressure 97/60 10/20/19 11:05 O2 Sat by Pulse Oximetry (%) 98 10/20/19 11:05 Constitutional: Yes: Well Nourished Neck: Yes: WNL Cardiovascular: Yes: WNL Labs: CBC, BMP 10/20/19 07:14 10/20/19 07:14 INR, PTT INR 1.12 (0.83-1.09) H 10/19/19 18:00 - Neuro Exam Level Of Consciousness: Yes: Oriented to Person, Oriented to Place, Oriented to Time Eyes: Yes: PERRLA Speech: WNL Dominant Hand: Right DTR's: 0 Left Bicep, 0 Right Bicep, 0 Left Tricep, 0 Right Tricep, 0 Left Br achioradialis Response to light touch: Normal Response to pain prick: Normal Response to temperature: Abnormal Response to vibration: Abnormal Motor Strength: 3/5: Left Arm, Right Arm, Left Leg, Right Leg Gait: Deferred Problem List - Problems (1) Chronic back pain Code(s): M54.9 - DORSALGIA, UNSPECIFIED; G89.29 - OTHER CHRONIC PAIN (2) Generalized weakness Code(s): R53.1 - WEAKNESS Assessment/Plan 1. DT prophylaxis with thiamine 100 mg and folic acid 2 mg. 2. Increase by mouth fluid intake. 3. Weight loss. 4. Blood work that would includes acetylcholine receptor antibody, myoglobin, aldolase. 5. Nerve conduction testing electromyography of the lower extremities. Thank you very much for allowing me to be part of this patient neurological care. Erasto Barrientos M.D. [phone]
--- NOTE | 2019-10-20 16:57 | PN ---
Physical Exam: SUBJECTIVE: Patient seen and examined OBJECTIVE: Vital Signs Temperature 98 F 10/20/19 14:15 Pulse Rate 69 10/20/19 14:15 Respiratory Rate 20 10/20/19 14:15 Blood Pressure 116/55 L 10/20/19 14:15 O2 Sat by Pulse Oximetry (%) 97 10/20/19 14:15 GENERAL: The patient is awake, alert, and fully oriented, in no acute distress. NECK: full range of motion, supple. LUNGS: Breath sounds equal, clear to auscultation bilaterally HEART: Regular rate and rhythm, S1, S2 ABDOMEN: Soft, nontender, nondistended, normoactive bowel sounds EXTREMITIES: 2+ pulses, warm, well-perfused, no edema. NEUROLOGICAL: Cranial nerves II through XII grossly intact. Normal speech PSYCH: Normal mood, normal affect. SKIN: Warm, dry, normal turgor Laboratory Results - last 24 hr 10/19/19 10/19/19 10/19/19 18:00 18:00 18:00 WBC 8.1 RBC 3.73 L Hgb 12.7 Hct 36.9 MCV 99.1 H MCH 34.1 H MCHC 34.4 RDW 13.7 D Plt Count 137 MPV 10.5 D Absolute Neuts (auto) 5.4 Neutrophils % 65.8 D Lymphocytes % 21.2 D Monocytes % 9.6 Eosinophils % 2.5 Basophils % 0.9 Nucleated RBC % 0 PT with INR 13.20 H INR 1.12 H PTT (Actin FS) 31.1 Sodium 137 Potassium 5.7 H Chloride 109 H Carbon Dioxide 21 Anion Gap 6 L BUN 40.5 H Creatinine 1.6 H Est GFR (CKD-EPI)AfAm 58.59 Est GFR (CKD-EPI)NonAf 50.55 Random Glucose 101 Calcium 9.2 Phosphorus Magnesium Total Bilirubin 0.3 AST 43 H ALT 53 Alkaline Phosphatase 51 Creatine Kinase Troponin I Total Protein 7.4 Albumin 3.4 TSH Free T4 Urine Color Urine Appearance Urine pH Ur Specific [place] Urine Protein Urine Glucose (UA) Urine Ketones Urine Blood Urine Nitrite Urine Bilirubin Urine Urobilinogen Ur Leukocyte Esterase Opiates Screen Methadone Screen Barbiturate Screen Phencyclidine Screen Ur Amphetamines Screen MDMA (Ecstasy) Screen Benzodiazepines Screen Cocaine Screen U Marijuana (THC) Screen Alcohol, Quantitative < 3 10/19/19 10/19/19 10/19/19 18:00 20:00 22:20 WBC RBC Hgb Hct MCV MCH MCHC RDW Plt Count MPV Absolute Neuts (auto) Neutrophils % Lymphocytes % Monocytes % Eosinophils % Basophils % Nucleated RBC % PT with INR INR PTT (Actin FS) Sodium 138 Potassium 4.9 Chloride 111 H Carbon Dioxide 22 Anion Gap 5 L BUN 40.1 H Creatinine 1.5 H Est GFR (CKD-EPI)AfAm 63.34 Est GFR (CKD-EPI)NonAf 54.65 Random Glucose 98 Calcium 8.4 L Phosphorus 4.3 Magnesium 2.1 Total Bilirubin AST ALT Alkaline Phosphatase Creatine Kinase 137 Troponin I < 0.02 Total Protein Albumin TSH 1.39 Free T4 0.98 Urine Color Yellow Urine Appearance Clear Urine pH 5.0 Ur Specific [place] 1.017 Urine Protein Negative Urine Glucose (UA) Negative Urine Ketones Negative Urine Blood Negative Urine Nitrite Negative Urine Bilirubin Negative Urine Urobilinogen 0.2 Ur Leukocyte Esterase Negative Opiates Screen Methadone Screen Barbiturate Screen Phencyclidine Screen Ur Amphetamines Screen MDMA (Ecstasy) Screen Benzodiazepines Screen Cocaine Screen U Marijuana (THC) Screen Alcohol, Quantitative 10/20/19 10/20/19 10/20/19 01:45 07:14 07:14 WBC 5.3 RBC 3.34 L Hgb 11.2 L Hct 33.4 L MCV 99.9 H MCH 33.6 MCHC 33.7 RDW 13.7 Plt Count 104 L D MPV 10.9 Absolute Neuts (auto) 2.8 Neutrophils % 54.2 Lymphocytes % 31.0 D Monocytes % 10.6 H Eosinophils % 3.2 Basophils % 1.0 Nucleated RBC % 0 PT with INR INR PTT (Actin FS) Sodium 140 Potassium 4.9 Chloride 112 H Carbon Dioxide 20 L Anion Gap 7 L BUN 37.9 H Creatinine 1.3 Est GFR (CKD-EPI)AfAm 75.31 Est GFR (CKD-EPI)NonAf 64.98 Random Glucose 110 H Calcium 8.3 L Phosphorus Magnesium Total Bilirubin 0.5 AST 32 ALT 42 Alkaline Phosphatase 41 L Creatine Kinase Troponin I Total Protein 6.4 Albumin 2.9 L TSH Free T4 Urine Color Urine Appearance Urine pH Ur Specific [place] Urine Protein Urine Glucose (UA) Urine Ketones Urine Blood Urine Nitrite Urine Bilirubin Urine Urobilinogen Ur Leukocyte Esterase Opiates Screen Negative Methadone Screen Negative Barbiturate Screen Negative Phencyclidine Screen Negative Ur Amphetamines Screen Negative MDMA (Ecstasy) Screen Negative Benzodiazepines Screen Negative Cocaine Screen Negative U Marijuana (THC) Screen Negative Alcohol, Quantitative Active Medications Generic Name Dose Route Start Last Admin Trade Name Autumn PRN Reason Stop Dose Admin Heparin Sodium (Porcine) 5,000 unit 10/19/19 22:00 10/20/19 15:45 Heparin - SQ 5,000 unit TID ERI Administration Nicotine 14 mg 10/20/19 10:00 10/20/19 10:17 Nicoderm Patch - TD 14 mg DAILY ERI Administration ASSESSMENT/PLAN: Patient is a 48 male with a PMHx of HTN, DVT LLE (Eliquis, d/c 2 weeks ago), Alcohol Abuse (stopped 2 weeks ago), Cirrhosis, Esophageal Varices, Chronic Back Pain (on Suboxone), Tobacco Dependency, presented to the ED after he was found to have hyperkalemia #Hyperkalemia -likely 2/2 medications -Lokelma, insulin/d50 given at the ED -K now stable -will continue to monitor bmp - #ROBERT -likely pre-renal from overdiuresis, medications -renal function improving -Nephrology (Dr. Barcenas) consulted. #HTN -BP stable without medications -May continue with spironolactone at a lower dose of 25mg bid or daily -Continue Lasix -May keep metoprolol or discontinue if BP remains normal -Discontinue enalapril -continue to monitor bp #FEN -Not on any standing fluids -Electrolytes wnl, routine bmp monitoring -Sodium controlled diet #Prophylaxis -Heparin 5000u sq tid #Disposition -full code -med surg Visit type - Emergency Visit Emergency Visit: Yes ED Registration Date: 10/19/19 Care time: The patient presented to the Emergency Department on the above date and was hospitalized for further evaluation of their emergent condition. - New Patient This patient is new to me today: Yes Date on this admission: 10/20/19 - Critical Care Critical Care patient: No ATTENDING PHYSICIAN STATEMENT I saw and evaluated the patient. I reviewed the resident's note and discussed the case with the resident. I agree with the resident's findings and plan as documented. SUBJECTIVE: OBJECTIVE: ASSESSMENT AND PLAN:
--- NOTE | 2019-10-20 17:12 | CONSULT ---
Consult Consult Specialty:: Nephrology Reason for Consultation:: ROBERT - History of Present Illness Chief Complaint: fatigue and muscle pain History of Present Illness: Pt is a 48 year old gentleman with pmhx of etoh abuse, liver cirrhosis, htn, dvt, chronic back pain, and an active smoker who presents to the ER with a potassium of 6.2. He was told to go to the hospital after having bloodwork done at urgent care. He was also found to have ROBERT. He complains of easy fatigue and muscle pain when he exerts himself. He says that he has had the symptoms for a few weeks. HE feels they began shortly after he stopped drinking alcohol. He was on aldactone and was then started on lasix. He says that his lower ext edema had resolved before he started feeling the muscle weakness. He also says that he feels increased thirst. He denies history of ckd. He denies dysuria or hematuria. - History Source History Provided By: Patient - Past Medical History Cardio/Vascular: Yes: Aortic Insufficiency, Deep Vein Thrombosis (LLE (stopped taking Eliquis 1 month ago)), Other (Peripheral Edema) Gastrointestinal: Yes: Esophageal Varices Hepatobiliary: Yes: Cirrhosis Psych: Yes: Addictions Musculoskeletal: Yes: Chronic low back pain - Alcohol/Substance Use Hx Alcohol Use: No (Alcohol Abuse Hx) Number of Drinks Daily: 12 (case of beer daily, stopped 2.5 weeks ago) History of Substance Use: reports: Prescription (on Buprenorphine/suboxone) - Smoking History Smoking history: Never smoked Have you smoked in the past 12 months: Yes Aproximately how many cigarettes per day: 20 (+30 year hx) - Social History ADL: Independent 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- [employer] History of Recent Travel: No Home Medications - Allergies Allergies/Adverse Reactions: Allergies Allergy/AdvReac Type Severity Reaction Status Date / Time aspirin Allergy Verified 10/19/19 17:31 Penicillins Allergy Verified 10/19/19 17:31 - Home Medications Home Medications: Ambulatory Orders Enalapril Maleate [Vasotec] 20 mg PO BID 08/02/15 Metoprolol Succinate [Toprol Xl -] 25 mg PO BID 08/02/15 Buprenorphine HCl/Naloxone HCl [Buprenorp-Nalox 4-1 mg Sl Film] 1 film SL BID 02/08/19 Furosemide [Lasix] 20 mg PO DAILY 10/19/19 Spironolactone 50 mg PO BID 10/19/19 Family Medical History Family History: Denies Review of Systems - Review of Systems Constitutional: reports: Malaise Eyes: reports: No Symptoms HENT: reports: No Symptoms Neck: reports: No Symptoms Cardiovascular: reports: No Symptoms Respiratory: reports: No Symptoms Gastrointestinal: reports: No Symptoms Genitourinary: reports: No Symptoms Musculoskeletal: reports: No Symptoms Integumentary: reports: No Symptoms Neurological: reports: No Symptoms Endocrine: reports: No Symptoms Hematology/Lymphatic: reports: No Symptoms Psychiatric: reports: No Symptoms Physical Exam Vital Signs: Vital Signs Temperature 98 F 10/20/19 14:15 Pulse Rate 69 10/20/19 14:15 Respiratory Rate 20 10/20/19 14:15 Blood Pressure 116/55 L 10/20/19 14:15 O2 Sat by Pulse Oximetry (%) 97 10/20/19 14:15 Constitutional: Yes: Calm Eyes: Yes: Conjunctiva Clear HENT: Yes: Atraumatic Neck: Yes: Supple Cardiovascular: Yes: S1, S2 Respiratory: Yes: CTA Bilaterally Gastrointestinal: Yes: Soft, Abdomen, Obese Renal/: Yes: WNL Musculoskeletal: Yes: WNL Edema: Yes Edema: LLE: Trace, RLE: Trace Neurological: Yes: Oriented Psychiatric: Yes: Oriented Labs: CBC, BMP 10/20/19 07:14 10/20/19 07:14 Laboratory Tests 10/19/19 10/19/19 10/19/19 18:00 18:00 20:00 Sodium Potassium 5.7 H Chloride BUN Creatinine 1.6 H Creatine Kinase 137 Urine Protein Urine Blood COVID-19 (ALBERT) Pending 10/19/19 10/19/19 10/20/19 20:00 22:20 07:14 Sodium 140 Potassium 4.9 4.9 Chloride 112 H BUN 37.9 H Creatinine 1.5 H 1.3 Creatine Kinase Urine Protein Negative Urine Blood Negative COVID-19 (ALBERT) Imaging - Results Chest X-ray: Report Reviewed Ultrasound: Report Reviewed Problem List - Problems (1) ROBERT (acute kidney injury) Code(s): N17.9 - ACUTE KIDNEY FAILURE, UNSPECIFIED (2) Alcohol abuse Code(s): F10.10 - ALCOHOL ABUSE, UNCOMPLICATED (3) Cirrhosis Code(s): K74.60 - UNSPECIFIED CIRRHOSIS OF LIVER Assessment/Plan Current Medications Generic Name Dose Route Start Last Admin Trade Name Autumn PRN Reason Stop Dose Admin Heparin Sodium (Porcine) 5,000 unit 10/19/19 22:00 10/20/19 15:45 Heparin - SQ 5,000 unit TID ERI Administration Nicotine 14 mg 10/20/19 10:00 10/20/19 10:17 Nicoderm Patch - TD 14 mg DAILY ERI Administration Impression 1. robert 2. hyperkalemia 3. hypotension 4. liver cirrhosis 5. muscle weakness 6. chronic back pain 7. etoh abuse 8. active smoker Plan - hold aldactone - hold lasix - pt responded to fluids - likely overdiuresed - cxr clear and edema improved - stop bela as he is hypotensive - monitor bp - cpk normal - repeat labs in am - will likely need lower doses of diueretics - recommend weight loss and 2 grams sodium diet
[2019-10-20] MEDS ORDERED: SODIUM CHLORIDE 500 ML IV STA (17:16)
[2019-10-20] MEDS ORDERED: SODIUM CHLORIDE 0.45% 1,000 ML IV SCH (17:30)
[2019-10-21] MEDS: HEPARIN NA (PORCINE) 5,000 UNITS/ML 1ML VIAL SQ SCH (05:11)
[2019-10-21 08:03] LABS: ALBUMIN 3.2 g/dl (3.4-5.0); BILIRUBIN,TOTAL 0.8 mg/dL (0.2-1); BLOOD UREA NITROGEN 23.8 mg/dL (7-18); CALCIUM 8.9 mg/dL (8.5-10.1); POTASSIUM 5.1 mmol/L (3.5-5.1); TOT PROT 7.4 g/dl (6.4-8.2)
[2019-10-21] MEDS: NICOTINE 14 MG/24 HOURS TOPICAL PATCH TD SCH (10:53)
[2019-10-21 14:35] VITALS: BP 149/77; PULSE 77; TEMP 98.3
--- NOTE | 2019-10-21 16:56 | DS ---
Physical Exam: SUBJECTIVE: Patient seen and examined. OBJECTIVE: Vital Signs Temperature 98.3 F 10/21/19 14:23 Pulse Rate 77 10/21/19 14:23 Respiratory Rate 20 10/21/19 14:23 Blood Pressure 149/77 10/21/19 14:23 O2 Sat by Pulse Oximetry (%) 98 10/21/19 14:23 PHYSICAL EXAM GENERAL: The patient is awake, alert, and fully oriented, in no acute distress. NECK: full range of motion, supple. LUNGS: Breath sounds equal, clear to auscultation bilaterally HEART: Regular rate and rhythm, S1, S2 ABDOMEN: Soft, nontender, nondistended, normoactive bowel sounds EXTREMITIES: 2+ pulses, warm, well-perfused, no edema. NEUROLOGICAL: Cranial nerves II through XII grossly intact. Normal speech PSYCH: Normal mood, normal affect. SKIN: Warm, dry, normal turgor LABS Laboratory Results - last 24 hr 10/19/19 10/21/19 20:00 07:00 Sodium 139 Potassium 5.1 Chloride 110 H Carbon Dioxide 23 Anion Gap 5 L BUN 23.8 H Creatinine 1.0 Est GFR (CKD-EPI)AfAm 103.42 Est GFR (CKD-EPI)NonAf 89.23 Random Glucose 89 Calcium 8.9 Total Bilirubin 0.8 AST 35 ALT 43 Alkaline Phosphatase 45 Total Protein 7.4 Albumin 3.2 L COVID-19 (ALBERT) Not detected HOSPITAL COURSE: Date of Admission:10/19/19 Date of Discharge: 10/21/19 Patient is a 48 male with a PMHx of HTN, DVT LLE (Eliquis, d/c 2 weeks ago), Alcohol Abuse (stopped 2 weeks ago), Cirrhosis, Esophageal Varices, Chronic Back Pain (on Suboxone), Tobacco Dependency, presented to the ED after he was found to have hyperkalemia. He was given lokelma and insulin/d50 and potassium level improved. PAtient was also noted to have ROBERT likely 2/2 overdiuresis. His diuretics were held, nephrology was consulted and he was given IV fluids. Renal function continued to improved throughout hospital stay. 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 His BP remained normal througout. He was discharge with instructions to hold spironolactone, lasix until he sees Dr. Barcenas in a week. Metoprolol was also switched to propranolol for variceal ppx, and Enalapril was discontinued. Minutes to complete discharge: 38 Discharge Summary Problems reviewed: Yes Reason For Visit: ACUTE KIDNEY INJURY,MUSCLE PAIN,HYPERKALEMIA Condition: Improved - Instructions Diet, Activity, Other Instructions: Your visit You were admitted to the hospital because your potassium was noted to be elevated. This was likely because of your medications. You were evaluated by nephrology. Some of your medications have been changed. You will need to follow up with Dr. Barcenas (document restorer) to discuss whether to continue the water pills. You were also evaluated by neurology for muscle pain. No urgent recommendations at this time. But you could follow up at Dr. Barrientos's office for further work- up including nerve conduction studies of your legs. Medications Please take note of the following changes to your medications: 1. Take Propranolol 10mg twice daily. 2. Take Protonix 40mg once daily 3. Please STOP taking Enalapril 4. Please STOP Spironolactone and Lasix until you follow up with Dr. Barcenas 5. Please STOP taking Metoprolol Please continue your other home medications as prescribed. Follow up Please follow up with your primary care doctor in 1 week. You will need a repeat blood work in a week to check your electrolytes and kidney function. Please follow up with the document restorer (Dr. Barcenas) in 1 week. A referral has been provided. Please follow up with your presser cotton [employer] in 1-2 weeks, for further management of your liver disease. Please follow up with neurologist (Dr. Barrientos). A referral has been provided. Additional info Please call 911 or go to the ED if with any worsening fevers, chills, headache, dizziness, chest pain, shortness of breath, belly pain, diarrhea, or any new concerns noted. Referrals: Angel Barcenas MD [Staff Physician] - Erasto Barrientos MD [Staff Physician] - Disposition: HOME - Home Medications Comprehensive Discharge Medication List: Ambulatory Orders Enalapril Maleate [Vasotec] 20 mg PO BID 08/02/15 Buprenorphine HCl/Naloxone HCl [Buprenorp-Nalox 4-1 mg Sl Film] 1 film SL BID 02/08/19 Pantoprazole Sodium [Protonix] 40 mg PO DAILY #30 tablet. 10/21/19 Propranolol HCl 10 mg PO BID #60 tablet 10/21/19 This patient is new to me today: No Emergency Visit: Yes ED Registration Date: 10/19/19 Care time: The patient presented to the Emergency Department on the above date and was hospitalized for further evaluation of their emergent condition. Critical Care patient: No - Discharge Referral Referred to [facility] Med [facility] No ATTENDING PHYSICIAN STATEMENT I saw and evaluated the patient. I reviewed the resident's note and discussed the case with the resident. I agree with the resident's findings and plan as documented. SUBJECTIVE: OBJECTIVE: ASSESSMENT AND PLAN:
--- NOTE | 2019-10-22 18:28 | PN ---
Teaching Attending Note Name of Resident: Gilma Maxwell ATTENDING PHYSICIAN STATEMENT I saw and evaluated the patient. I reviewed the resident's note and discussed the case with the resident. I agree with the resident's findings and plan as documented. SUBJECTIVE: Patient seen and examined at bedside, admitted for ROBERT w/ hyperkalemia and weakness, denies current complaints, ROBERT improved, diuretics held, wants to go home. Follows with GI provider at [facility]. S. OBJECTIVE: GENERAL: Awake, alert, and fully oriented, in no acute distress, smells of cigarette smoke. HEENT: NC/AT, PERRLA, neck supple no JVD, not pale/cyanosed or Jaundiced LUNGS: Breath sounds equal, clear to auscultation bilaterally. No wheezes, and no crackles. No accessory muscle use. HEART: Regular rate and rhythm, normal S1 and S2 ABDOMEN: morbidly obese, Soft, nontender, not distended, BS+ MUSCULOSKELETAL: Normal range of motion at all joints. No bony deformities or tenderness. No CVA tenderness. UPPER EXTREMITIES: 2+ pulses, warm, well-perfused. No cyanosis. No clubbing. No peripheral edema. LOWER EXTREMITIES: 2+ pulses, warm, well-perfused. No calf tenderness. +1 edema. NEUROLOGICAL: Cranial nerves II-XII intact. Normal speech. Vital Signs (72 hours) 10/19/19 10/19/19 10/19/19 20:35 20:49 21:00 Temperature 98.6 F Pulse Rate Pulse Rate [ 71 Radial] Respiratory 20 20 Rate Blood Pressure Blood Pressure 122/61 [Left Arm] O2 Sat by Pulse 100 100 96 Oximetry (%) 10/19/19 10/19/19 10/19/19 21:01 21:15 22:00 Temperature 98.0 F 98.0 F Pulse Rate 76 76 Pulse Rate [ Radial] Respiratory 20 20 20 Rate Blood Pressure 116/49 L 116/49 L Blood Pressure [Left Arm] O2 Sat by Pulse 96 96 96 Oximetry (%) 10/20/19 10/20/19 10/20/19 02:00 06:00 09:00 Temperature 97.3 F L 98.1 F Pulse Rate 61 67 Pulse Rate [ Radial] Respiratory 20 20 20 Rate Blood Pressure 108/57 L 89/47 L Blood Pressure [Left Arm] O2 Sat by Pulse 93 L 93 L 98 Oximetry (%) 10/20/19 10/20/19 10/20/19 11:05 14:15 18:00 Temperature 98 F 98 F 98.1 F Pulse Rate 66 69 70 Pulse Rate [ Radial] Respiratory 20 20 20 Rate Blood Pressure 97/60 116/55 L 108/60 Blood Pressure [Left Arm] O2 Sat by Pulse 98 97 96 Oximetry (%) 10/20/19 10/20/19 10/21/19 20:31 21:00 05:46 Temperature 98.1 F 98.1 F Pulse Rate 74 68 Pulse Rate [ Radial] Respiratory 18 18 18 Rate Blood Pressure 102/56 L 107/55 L Blood Pressure [Left Arm] O2 Sat by Pulse 97 97 94 L Oximetry (%) 10/21/19 10/21/19 11:00 14:23 Temperature 98.0 F 98.3 F Pulse Rate 66 77 Pulse Rate [ Radial] Respiratory 18 20 Rate Blood Pressure 119/64 149/77 Blood Pressure [Left Arm] O2 Sat by Pulse 96 98 Oximetry (%) Laboratory Tests 10/19/19 10/19/19 10/19/19 18:00 18:00 18:00 WBC 8.1 RBC 3.73 L Hgb 12.7 Hct 36.9 MCV 99.1 H MCH 34.1 H MCHC 34.4 RDW 13.7 D Plt Count 137 MPV 10.5 D Absolute Neuts (auto) 5.4 Neutrophils % 65.8 D Lymphocytes % 21.2 D Monocytes % 9.6 Eosinophils % 2.5 Basophils % 0.9 Nucleated RBC % 0 PT with INR 13.20 H INR 1.12 H PTT (Actin FS) 31.1 Sodium 137 Potassium 5.7 H Chloride 109 H Carbon Dioxide 21 Anion Gap 6 L BUN 40.5 H Creatinine 1.6 H Est GFR (CKD-EPI)AfAm 58.59 Est GFR (CKD-EPI)NonAf 50.55 Random Glucose 101 Calcium 9.2 Phosphorus Magnesium Total Bilirubin 0.3 AST 43 H ALT 53 Alkaline Phosphatase 51 Creatine Kinase Troponin I Total Protein 7.4 Albumin 3.4 TSH Free T4 Urine Color Urine Appearance Urine pH Ur Specific [place] Urine Protein Urine Glucose (UA) Urine Ketones Urine Blood Urine Nitrite Urine Bilirubin Urine Urobilinogen Ur Leukocyte Esterase Opiates Screen Methadone Screen Barbiturate Screen Phencyclidine Screen Ur Amphetamines Screen MDMA (Ecstasy) Screen Benzodiazepines Screen Cocaine Screen U Marijuana (THC) Screen Alcohol, Quantitative < 3 COVID-19 (ALBERT) 10/19/19 10/19/19 10/19/19 18:00 20:00 20:00 WBC RBC Hgb Hct MCV MCH MCHC RDW Plt Count MPV Absolute Neuts (auto) Neutrophils % Lymphocytes % Monocytes % Eosinophils % Basophils % Nucleated RBC % PT with INR INR PTT (Actin FS) Sodium Potassium Chloride Carbon Dioxide Anion Gap BUN Creatinine Est GFR (CKD-EPI)AfAm Est GFR (CKD-EPI)NonAf Random Glucose Calcium Phosphorus 4.3 Magnesium 2.1 Total Bilirubin AST ALT Alkaline Phosphatase Creatine Kinase 137 Troponin I < 0.02 Total Protein Albumin TSH 1.39 Free T4 0.98 Urine Color Yellow Urine Appearance Clear Urine pH 5.0 Ur Specific [place] 1.017 Urine Protein Negative Urine Glucose (UA) Negative Urine Ketones Negative Urine Blood Negative Urine Nitrite Negative Urine Bilirubin Negative Urine Urobilinogen 0.2 Ur Leukocyte Esterase Negative Opiates Screen Methadone Screen Barbiturate Screen Phencyclidine Screen Ur Amphetamines Screen MDMA (Ecstasy) Screen Benzodiazepines Screen Cocaine Screen U Marijuana (THC) Screen Alcohol, Quantitative COVID-19 (ALBERT) Not detected 10/19/19 10/20/19 10/20/19 22:20 01:45 07:14 WBC 5.3 RBC 3.34 L Hgb 11.2 L Hct 33.4 L MCV 99.9 H MCH 33.6 MCHC 33.7 RDW 13.7 Plt Count 104 L D MPV 10.9 Absolute Neuts (auto) 2.8 Neutrophils % 54.2 Lymphocytes % 31.0 D Monocytes % 10.6 H Eosinophils % 3.2 Basophils % 1.0 Nucleated RBC % 0 PT with INR INR PTT (Actin FS) Sodium 138 Potassium 4.9 Chloride 111 H Carbon Dioxide 22 Anion Gap 5 L BUN 40.1 H Creatinine 1.5 H Est GFR (CKD-EPI)AfAm 63.34 Est GFR (CKD-EPI)NonAf 54.65 Random Glucose 98 Calcium 8.4 L Phosphorus Magnesium Total Bilirubin AST ALT Alkaline Phosphatase Creatine Kinase Troponin I Total Protein Albumin TSH Free T4 Urine Color Urine Appearance Urine pH Ur Specific [place] Urine Protein Urine Glucose (UA) Urine Ketones Urine Blood Urine Nitrite Urine Bilirubin Urine Urobilinogen Ur Leukocyte Esterase Opiates Screen Negative Methadone Screen Negative Barbiturate Screen Negative Phencyclidine Screen Negative Ur Amphetamines Screen Negative MDMA (Ecstasy) Screen Negative Benzodiazepines Screen Negative Cocaine Screen Negative U Marijuana (THC) Screen Negative Alcohol, Quantitative COVID-19 (ALBERT) 10/20/19 10/21/19 07:14 07:00 WBC RBC Hgb Hct MCV MCH MCHC RDW Plt Count MPV Absolute Neuts (auto) Neutrophils % Lymphocytes % Monocytes % Eosinophils % Basophils % Nucleated RBC % PT with INR INR PTT (Actin FS) Sodium 140 139 Potassium 4.9 5.1 Chloride 112 H 110 H Carbon Dioxide 20 L 23 Anion Gap 7 L 5 L BUN 37.9 H 23.8 H Creatinine 1.3 1.0 Est GFR (CKD-EPI)AfAm 75.31 103.42 Est GFR (CKD-EPI)NonAf 64.98 89.23 Random Glucose 110 H 89 Calcium 8.3 L 8.9 Phosphorus Magnesium Total Bilirubin 0.5 0.8 AST 32 35 ALT 42 43 Alkaline Phosphatase 41 L 45 Creatine Kinase Troponin I Total Protein 6.4 7.4 Albumin 2.9 L 3.2 L TSH Free T4 Urine Color Urine Appearance Urine pH Ur Specific [place] Urine Protein Urine Glucose (UA) Urine Ketones Urine Blood Urine Nitrite Urine Bilirubin Urine Urobilinogen Ur Leukocyte Esterase Opiates Screen Methadone Screen Barbiturate Screen Phencyclidine Screen Ur Amphetamines Screen MDMA (Ecstasy) Screen Benzodiazepines Screen Cocaine Screen U Marijuana (THC) Screen Alcohol, Quantitative COVID-19 (ALBERT) Home Medications Medication Instructions Recorded Enalapril Maleate [Vasotec] 20 mg PO BID 08/02/15 Buprenorphine HCl/Naloxone HCl 1 film SL BID 02/08/19 [Buprenorp-Nalox 4-1 mg Sl Film] Pantoprazole Sodium [Protonix] 40 mg PO DAILY #30 tablet. 10/21/19 Propranolol HCl 10 mg PO BID #60 tablet 10/21/19 ASSESSMENT AND PLAN: 48 M Etoh induced liver cirrhosis ROBERT on CKD HTN HLD Morbid obesity Nicotine dependence GERD Plan: Hold diuretics in view of ROBERT, no visible ascites on ABD US Wants to follow with GI provider at [facility] with Propranolol for h/o esophageal varices (more beneficial than Metoprolol) COnt. PPI Extensive conversation on smoking and Etoh cessation, refusing NRT/CHantix wants to quit cold turkey, endorses Etoh binge weeks ago was a "slip up" refusing [facility] home with follow up to see TEREZA mclean [facility]
== END 2019-10-21 14:31 | disposition home or self-care (01) | DRG 683 ==
LOC: JER 17:21 → JERBED 19:59 → J7W 21:23
PROVIDERS: ADMIT Internal Medicine
DX: N17.9 Acute kidney failure, unspecified (principal); Z68.42 Body mass index [BMI] 45.0-49.9, adult; F10.10 Alcohol abuse, uncomplicated; K74.60 Unspecified cirrhosis of liver; E87.5 Hyperkalemia; I95.9 Hypotension, unspecified; M62.81 Muscle weakness (generalized); I10 Essential (primary) hypertension; G89.29 Other chronic pain; E66.01 Morbid (severe) obesity due to excess calories; R60.0 Localized edema; M79.10 Myalgia, unspecified site; M54.5 Low back pain; F17.210 Nicotine dependence, cigarettes, uncomplicated
CPT/HCPCS: 36415; 71046-TC-FY; 76705-TC; 80048; 80053; 80307; 81003; 82550; 83735; 84100; 84439; 84443; 84484; 85025; 85610; 85730; 93005; 93010; 93308; 99285-25; J1644; U0003

== ENCOUNTER 2020-03-18 16:24 | Emergency (ER) | payer BC, OTHER ==
[2020-03-18 16:32] VITALS: TEMP 98.3; BMI 47.5
[2020-03-18] MEDS ORDERED: ACETAMINOPHEN 1000 MG/100 ML VIAL (NON FORMULARY) IVPB ONE (16:43)
[2020-03-18] MEDS ORDERED: LACTATED RINGERS SOLUTION 1,000 ML IV STA (16:43)
[2020-03-18] MEDS ORDERED: ONDANSETRON 4 MG/2 ML VIAL IVPUSH ONE (16:44)
[2020-03-18] MEDS ORDERED: ACETAMINOPHEN INJECTION 100 ML IVPB ONE (17:08)
[2020-03-18] MEDS ORDERED: ONDANSETRON 4 MG/2 ML VIAL ONE (17:08)
[2020-03-18] MEDS ORDERED: FAMOTIDINE 20 MG/50 ML IVPB 20 MG/50 ML MG IVPB ONE ×2 (17:08→17:24)
[2020-03-18 17:26] LABS: PH,URINE 7.5 (5.0-8.0); URINE APPEARANCE CLEAR; URINE BILIRUBIN NEGATIVE (NEGATIVE); URINE COLOR YELLOW; URINE GLUCOSE (UA) NEGATIVE (NEGATIVE); URINE KETONE NEGATIVE (NEGATIVE); URINE LEUK ESTERASE NEGATIVE (NEGATIVE); URINE NITRITE NEGATIVE (NEGATIVE); URINE PROTEIN NEGATIVE (NEGATIVE); URINE UROBILINOGEN 0.2 mg/dL (0.2-1.0)
[2020-03-18 17:38] LABS: BASO % 0.8 % (0-2.0); HEMATOCRIT 42.6 % (35.4-49); HEMOGLOBIN 14.3 GM/dL (11.7-16.9); LYMPH % 12.8 % (8-40); MCH 32.5 pg (25.7-33.7); MCHC 33.5 g/dl (32.0-35.9); MEAN CELL VOLUME 97.2 fl (80-96); MEAN PLT VOLUME 9.4 fl (7.5-11.1); MONO % 10.2 % (3.8-10.2); NEUT % 75.2 % (42.8-82.8); PLATELET COUNT 137 K/MM3 (134-434); RBC 4.38 M/mm3 (4.00-5.60); RDW 17.3 % (11.9-15.9); WHITE BLOOD COUNT 8.1 K/mm3 (4.0-10.0)
[2020-03-18] MEDS ORDERED: LIDOCAINE 5% TOPICAL PATCH TP ONE (17:38)
[2020-03-18 17:46] LABS: INR 1.18 (0.83-1.09); PROTHROMBIN TIME (PATIENT) 14.2 SEC (9.7-13.0)
[2020-03-18 17:48] LABS: ACTIVATED PTT 30.6 SECONDS (25.2-36.5)
[2020-03-18 17:54] LABS: POTASSIUM 4.4 mmol/L (3.5-5.1)
[2020-03-18] MEDS ORDERED: NICOTINE 21 MG/24 HOURS TOPICAL PATCH TD ONE (17:55)
[2020-03-18 17:56] LABS: ALBUMIN 3.2 g/dl (3.4-5.0); CALCIUM 8.1 mg/dL (8.5-10.1)
[2020-03-18 17:57] LABS: BLOOD UREA NITROGEN 10.2 mg/dL (7-18); MAGNESIUM 1.7 mg/dL (1.8-2.4)
[2020-03-18 18:00] LABS: CREATININE 0.9 mg/dL (0.55-1.3); PHOSPHOROUS 2.2 mg/dL (2.5-4.9)
[2020-03-18 18:01] LABS: TOT PROT 7.8 g/dl (6.4-8.2)
[2020-03-18] MEDS ORDERED: LIDOCAINE 5% TOPICAL PATCH ONE ×2 (18:08→20:28)
[2020-03-18 18:15] LABS: N-TERMINAL BNP 14.6 pg/ml (5-125)
[2020-03-18] MEDS ORDERED: ALPRAZolam 1 MG TABLET PO PRN (20:26)
[2020-03-18] MEDS ORDERED: ALPRAZolam 1 MG TABLET ONE (20:50)
[2020-03-18] MEDS ORDERED: METHOCARBAMOL 500 MG TABLET ONE (23:25)
[2020-03-18 23:29] VITALS: BP 124/82; PULSE 82
[2020-03-18] MEDS ORDERED: METHOCARBAMOL 750 MG TABLET PO ONE (23:30)
[2020-03-19] MEDS ORDERED: LIDOCAINE PATCH REMOVAL MC SCH (06:00)
== END 2020-03-18 23:33 | disposition home or self-care (01) ==
LOC: JER 16:24
PROC: 3E033GC Introduction of Other Therapeutic Substance into Peripheral Vein, Percutaneous Approach (ICD-10-PCS; principal; 2020-03-18)
DX: M54.5 Low back pain (principal); F10.10 Alcohol abuse, uncomplicated
CPT/HCPCS: 36415; 71045-TC-FY; 71275-TC; 74174-TC; 76700-TC; 80053; 81003; 82140; 82550; 82553; 83605; 83690; 83735; 83880; 84100; 84484; 85025; 85610; 85730; 87086; 93005; 93010; 99285-25; J0131; Q9967

== ENCOUNTER 2020-04-19 05:03 | Day surgery (SDC) | payer BC, OTHER ==
[2020-04-19 09:31] VITALS: TEMP 98.1; BMI 48.2
[2020-04-19 11:40] VITALS: BP 114/68; PULSE 72
== END 2020-04-19 11:50 | disposition home or self-care (01) ==
LOC: JASU-ENDO 05:03
PROVIDERS: ATTEND Internal Medicine Gastroenterology
PROC: 0DB68ZX Excision of Stomach, Via Natural or Artificial Opening Endoscopic, Diagnostic (ICD-10-PCS; 2020-04-19)
PROC: 0DB48ZX Excision of Esophagogastric Junction, Via Natural or Artificial Opening Endoscopic, Diagnostic (ICD-10-PCS; principal; 2020-04-19 10:00)
DX: K21.00 Gastro-esophageal reflux disease with esophagitis, without bleeding (principal); K44.9 Diaphragmatic hernia without obstruction or gangrene; K22.70 Barrett's esophagus without dysplasia; K29.50 Unspecified chronic gastritis without bleeding; I10 Essential (primary) hypertension; E66.01 Morbid (severe) obesity due to excess calories; J44.9 Chronic obstructive pulmonary disease, unspecified
CPT/HCPCS: 88305-TC; 88342-TC

== ENCOUNTER 2020-05-27 16:46 | Emergency (ER) | payer BC, OTHER ==
[2020-05-27 17:00] VITALS: BP 116/51; PULSE 74; TEMP 97.8; BMI 47.5
== END 2020-05-27 18:57 | disposition home or self-care (01) ==
LOC: JERFT 16:46
DX: R07.89 Other chest pain (principal)
CPT/HCPCS: 71046-TC-FY; 99283-25

== ENCOUNTER 2020-08-04 19:27 | Emergency (ER) | payer BC, OTHER ==
[2020-08-04 19:36] VITALS: BP 130/70; PULSE 79; TEMP 98.1; BMI 48.8
[2020-08-04] MEDS ORDERED: ALPRAZolam 1 MG TABLET PO PRN (20:07)
[2020-08-04 20:32] LABS: BASO % 0.8 % (0-2.0); HEMATOCRIT 40.8 % (35.4-49); LYMPH % 19.9 % (8-40); MCH 33.8 pg (25.7-33.7); MCHC 34.3 g/dl (32.0-35.9); MEAN CELL VOLUME 98.6 fl (80-96); MEAN PLT VOLUME 9.9 fl (7.5-11.1); MONO % 8.7 % (3.8-10.2); NEUT % 68.6 % (42.8-82.8); PLATELET COUNT 90 K/MM3 (134-434); RBC 4.13 M/mm3 (4.00-5.60); RDW 14.9 % (11.9-15.9); WHITE BLOOD COUNT 6.1 K/mm3 (4.0-10.0)
[2020-08-04 20:33] LABS: INR 1.35 (0.83-1.09); PROTHROMBIN TIME (PATIENT) 16.5 SEC (9.7-13.0)
[2020-08-04 20:35] LABS: ACTIVATED PTT 31.2 SECONDS (25.2-36.5)
[2020-08-04 20:56] LABS: CHLORIDE 105 mmol/L (98-107); SODIUM 139 mmol/L (136-145)
[2020-08-04 20:58] LABS: ALBUMIN 2.9 g/dl (3.4-5.0); ANION GAP 4 MMOL/L (8-16); BLOOD UREA NITROGEN 11.5 mg/dL (7-18); CALCIUM 8.2 mg/dL (8.5-10.1); CO2 30 mmol/L (21-32); GLUCOSE,RANDOM 131 mg/dL (74-106)
[2020-08-04 21:01] LABS: SGOT/AST 51 U/L (15-37); SGPT/ALT 39 U/L (13-61)
[2020-08-04 21:03] LABS: BILIRUBIN,TOTAL 1.1 mg/dL (0.2-1); TOT PROT 7.7 g/dl (6.4-8.2)
[2020-08-04 21:04] LABS: ALK PHOS 87 U/L (45-117)
[2020-08-04 21:06] LABS: N-TERMINAL BNP 61.9 pg/ml (5-125)
[2020-08-04] MEDS ORDERED: ALPRAZolam 1 MG TABLET ONE (21:07)
== END 2020-08-04 23:39 | disposition home or self-care (01) ==
LOC: JER 19:27
DX: R06.02 Shortness of breath (principal); R91.1 Solitary pulmonary nodule; D73.4 Cyst of spleen; R60.0 Localized edema
CPT/HCPCS: 36415; 71275-TC; 80053; 83880; 84484; 85025; 85610; 85730; 93005; 93010; 93970-TC; 99285-25; C9803; Q9967; U0003; U0005

== ENCOUNTER 2020-08-28 14:49 | Emergency (ER) | payer BC, OTHER ==
[2020-08-28 15:02] VITALS: BMI 47.5
[2020-08-28] MEDS ORDERED: chlordiazePOXIDE HCL 25 MG CAPSULE PO ONE (16:40)
[2020-08-28 16:46] LABS: VENOUS PH 7.413 (7.310-7.410)
[2020-08-28 16:54] LABS: BASO % 0.3 % (0-2.0); HEMATOCRIT 42.6 % (35.4-49); HEMOGLOBIN 14.9 GM/dL (11.7-16.9); LYMPH % 12.7 % (8-40); MCH 33.9 pg (25.7-33.7); MCHC 34.8 g/dl (32.0-35.9); MEAN CELL VOLUME 97.4 fl (80-96); MEAN PLT VOLUME 9.5 fl (7.5-11.1); MONO % 10.6 % (3.8-10.2); NEUT % 75.4 % (42.8-82.8); PLATELET COUNT 118 K/MM3 (134-434); RBC 4.38 M/mm3 (4.00-5.60); RDW 15.1 % (11.9-15.9); WHITE BLOOD COUNT 9.1 K/mm3 (4.0-10.0)
[2020-08-28] MEDS ORDERED: chlordiazePOXIDE HCL 25 MG CAPSULE ONE (16:55)
[2020-08-28 17:07] LABS: CHLORIDE 103 mmol/L (98-107); SODIUM 135 mmol/L (136-145)
[2020-08-28 17:10] LABS: ALBUMIN 3.3 g/dl (3.4-5.0); ANION GAP 7 MMOL/L (8-16); BLOOD UREA NITROGEN 14.2 mg/dL (7-18); CALCIUM 8.6 mg/dL (8.5-10.1); CO2 26 mmol/L (21-32); GLUCOSE,RANDOM 95 mg/dL (74-106)
[2020-08-28 17:12] LABS: CREATININE 0.8 mg/dL (0.55-1.3); SGOT/AST 96 U/L (15-37); SGPT/ALT 64 U/L (13-61)
[2020-08-28 17:15] LABS: BILIRUBIN,TOTAL 1.3 mg/dL (0.2-1); TOT PROT 8.5 g/dl (6.4-8.2)
[2020-08-28 17:16] LABS: ALK PHOS 91 U/L (45-117)
[2020-08-28 17:18] LABS: N-TERMINAL BNP 47.6 pg/ml (5-125)
[2020-08-28 17:48] VITALS: BP 153/80; PULSE 76; TEMP 98.3
== END 2020-08-28 17:50 | disposition home or self-care (01) ==
LOC: JER 14:49
DX: R06.02 Shortness of breath (principal)
CPT/HCPCS: 36415; 71046-TC-FY; 80053; 82550; 82553; 82803; 83880; 84484; 85025; 93005; 93010; 99285-25